=== PATIENT | male | born 1955 | race Caucasian/White ===

== ENCOUNTER → 2017-04-30 | Outpatient (CLI) | payer BC ==
--- NOTE | 2017-05-08 12:17 | P.ARTDOP ---
Arterial Doppler LOWER EXTREMITY ARTERIAL DOPPLER: DATE OF SERVICE: 04/30/2019 Reason for study: Bilateral leg pain and ulcer right lower leg. Doppler waveforms: Multiphasic bilaterally throughout. Pulse volume recording: Normal configuration. Toe plethysmography waveforms look good Pressure gradients: None. Ankle-brachial indices: Greater than 1 on the left, right side cannot be occluded. Toe pressures: 74 on the right, 88 on the left Impression: Normal study in regards to flow. Suspect some calcification making some areas noncompressible. Perfusion however appears adequate for healing..
== END | disposition home or self-care (01) ==
LOC: RADUSWWP 13:04
PROVIDERS: ATTEND Internal Medicine Infectious Disease
DX: M79.604 Pain in right leg (principal); M79.605 Pain in left leg
CPT/HCPCS: 93923

== ENCOUNTER 2018-08-22 12:35 | Inpatient (IN) | payer BC ==
[2018-08-22 14:00] LABS: Basophils # (A) 0.1 k/uL (0-0.2); Basophils % (A) 1 %; Eosinophils # (A) 0.6 k/uL (0-0.7); Eosinophils % (A) 6 %; HCT 45.6 % (39.0-53.0); Lymphocytes # (A) 1.7 k/uL (1.0-4.8); Lymphocytes % (A) 16 %; MCH 29.3 pg (25.0-35.0); MCHC 32.9 g/dL (31.0-37.0); MCV 89.3 fL (80.0-100.0); Mean Platelet Volume 7.4; Monocytes # (A) 0.8 k/uL (0-1.0); Monocytes % (A) 7 %; Neutrophils # (A) 7.7 k/uL (1.3-7.7); Neutrophils % (A) 69 %; Platelet Count 156 k/uL (150-450); RBC 5.11 m/uL (4.30-5.90); RDW 14.5 % (11.5-15.5); WBC 11.2 k/uL (3.8-10.6)
--- NOTE | 2018-08-22 14:07 | ED ---
Extremity Problem HPI - General Chief complaint: Extremity Problem,Nontraumatic Stated complaint: Leg swelling/infection Time Seen by Provider: 08/22/18 12:45 Source: patient, RN notes reviewed Mode of arrival: ambulatory Limitations: no limitations - History of Present Illness Initial comments: 63-year-old male presents emergency Department chief complaint of right leg swelling. Patient states he primarily noticed that yesterday has worsened. He states she's noticed redness that has spread to his right thigh. Patient states he hasn't like this in the past and was treated with antibiotics for 2 weeks in the hospital. Patient states she has no history of DVT. Denies chest pain or shortness of breath. Patient reports no fevers or chills. He states his leg is very achy at this time denies any trauma. He is a known diabetic. Denies open lesions or sores on his foot or leg. - Related Data Home Medications Medication Instructions Recorded Confirmed Aspirin [Children's Aspirin] 81 mg PO DAILY 04/15/17 08/22/18 Dapagliflozin Propanediol [Farxiga] 5 mg PO DAILY 04/15/17 08/22/18 Furosemide [Lasix] 20 mg PO BID 04/15/17 08/22/18 Glimepiride [Amaryl] 4 mg PO DAILY 04/15/17 08/22/18 Pravastatin Sodium [Pravachol] 20 mg PO DAILY 04/15/17 08/22/18 Quinapril HCl [Accupril] 20 mg PO DAILY 04/15/17 08/22/18 metFORMIN HCL ER [Glucophage Xr] 500 mg PO DAILY 04/15/17 08/22/18 Hydrocodone/Acetaminophen [Melvin 1 tab PO Q6H PRN 08/22/18 08/22/18 5-325] Ibuprofen [Motrin Ib] 200 mg PO Q6H PRN 08/22/18 08/22/18 Levothyroxine Sodium [Synthroid] 75 mcg PO DAILY 08/22/18 08/22/18 Allergies Allergy/AdvReac Type Severity Reaction Status Date / Time No Known Allergies Allergy Verified 08/22/18 13:31 Review of Systems ROS Statement: Those systems with pertinent positive or pertinent negative responses have been documented in the HPI. ROS Other: All systems not noted in ROS Statement are negative. Past Medical History Past Medical History: Diabetes Mellitus, Hyperlipidemia, Hypertension, Myocardial Infarction ([place]) Additional Past Medical History / Comment(s): WOUND TO RLE Last Myocardial Infarction Date:: BETWEEN 2001 -2008 History of Any Multi-Drug Resistant Organisms: MRSA Date of last positivie culture/infection: 2008 MDRO Source:: LT SHOULDER Past Surgical History: Adenoidectomy, Orthopedic Surgery, Tonsillectomy Additional Past Surgical History / Comment(s): LT SHOULDER SX. LT KNEE SX. BILAT VEIN STRIPPING Past Anesthesia/Blood Transfusion Reactions: No Reported Reaction Past Psychological History: No Psychological Hx Reported Smoking Status: Never smoker Past Alcohol Use History: None Reported Past Drug Use History: None Reported - Past Family History Mother Family Medical History: No Reported History Brother(s) Family Medical History: Cancer General Exam Limitations: no limitations General appearance: alert, in no apparent distress Head exam: Present: atraumatic, normocephalic, normal inspection Respiratory exam: Present: normal lung sounds bilaterally. Absent: respiratory distress, wheezes, rales, rhonchi, stridor Cardiovascular Exam: Present: regular rate, normal rhythm, normal heart sounds. Absent: systolic murmur, diastolic murmur, rubs, gallop, clicks Extremities exam: Present: other (Right leg there is moderate to severe swelling extending to the right thigh with erythema, pedal pulses are equal bilaterally there is some noted tinea pedis there is moderate warmth to the right leg.) Neurological exam: Present: alert, oriented X3, CN II-XII intact, reflexes normal. Absent: motor sensory deficit Skin exam: Present: warm, dry, intact, normal color. Absent: rash Course Vital Signs 08/22/18 12:42 Temperature 99.4 F Pulse Rate 83 Respiratory 18 Rate Blood Pressure 177/69 O2 Sat by Pulse 97 Oximetry Medical Decision Making - Medical Decision Making 63-year-old male presented for right leg pain. Patient has extensive cellulitis negative for acute DVT on ultrasound. Patient has multiple lymph nodes. Patient has a white count 11.2. Patient be admitted for IV antibiotics. - Lab Data Result diagrams: 08/22/18 13:30 08/22/18 13:30 Lab Results 08/22/18 08/22/18 08/22/18 Range/Units 13:30 13:30 13:30 WBC 11.2 H (3.8-10.6) k/uL RBC 5.11 (4.30-5.90) m/uL Hgb 15.0 (13.0-17.5) gm/dL Hct 45.6 (39.0-53.0) % MCV 89.3 (80.0-100.0) fL MCH 29.3 (25.0-35.0) pg MCHC 32.9 (31.0-37.0) g/dL RDW 14.5 (11.5-15.5) % Plt Count 156 (150-450) k/uL Neutrophils % 69 % Lymphocytes % 16 % Monocytes % 7 % Eosinophils % 6 % Basophils % 1 % Neutrophils # 7.7 (1.3-7.7) k/uL Lymphocytes # 1.7 (1.0-4.8) k/uL Monocytes # 0.8 (0-1.0) k/uL Eosinophils # 0.6 (0-0.7) k/uL Basophils # 0.1 (0-0.2) k/uL PT 9.5 (9.0-12.0) sec INR 0.9 (<1.2) APTT 25.0 (22.0-30.0) sec Sodium 139 (137-145) mmol/L Potassium 4.5 (3.5-5.1) mmol/L Chloride 106 (98-107) mmol/L Carbon Dioxide 23 (22-30) mmol/L Anion Gap 10 mmol/L BUN 33 H (9-20) mg/dL Creatinine 1.25 (0.66-1.25) mg/dL Est GFR (CKD-EPI)AfAm 70 (>60 ml/min/1.73 sqM) Est GFR (CKD-EPI)NonAf 61 (>60 ml/min/1.73 sqM) Glucose 188 H (74-99) mg/dL Plasma Lactic Acid Willie (0.7-2.0) mmol/L Calcium 9.5 (8.4-10.2) mg/dL Total Bilirubin 0.5 (0.2-1.3) mg/dL AST 18 (17-59) U/L ALT 25 (21-72) U/L Alkaline Phosphatase 93 (38-126) U/L Total Protein 7.3 (6.3-8.2) g/dL Albumin 4.1 (3.5-5.0) g/dL 08/22/18 Range/Units 13:30 WBC (3.8-10.6) k/uL RBC (4.30-5.90) m/uL Hgb (13.0-17.5) gm/dL Hct (39.0-53.0) % MCV (80.0-100.0) fL MCH (25.0-35.0) pg MCHC (31.0-37.0) g/dL RDW (11.5-15.5) % Plt Count (150-450) k/uL Neutrophils % % Lymphocytes % % Monocytes % % Eosinophils % % Basophils % % Neutrophils # (1.3-7.7) k/uL Lymphocytes # (1.0-4.8) k/uL Monocytes # (0-1.0) k/uL Eosinophils # (0-0.7) k/uL Basophils # (0-0.2) k/uL PT (9.0-12.0) sec INR (<1.2) APTT (22.0-30.0) sec Sodium (137-145) mmol/L Potassium (3.5-5.1) mmol/L Chloride (98-107) mmol/L Carbon Dioxide (22-30) mmol/L Anion Gap mmol/L BUN (9-20) mg/dL Creatinine (0.66-1.25) mg/dL Est GFR (CKD-EPI)AfAm (>60 ml/min/1.73 sqM) Est GFR (CKD-EPI)NonAf (>60 ml/min/1.73 sqM) Glucose (74-99) mg/dL Plasma Lactic Acid Willie 1.0 (0.7-2.0) mmol/L Calcium (8.4-10.2) mg/dL Total Bilirubin (0.2-1.3) mg/dL AST (17-59) U/L ALT (21-72) U/L Alkaline Phosphatase (38-126) U/L Total Protein (6.3-8.2) g/dL Albumin (3.5-5.0) g/dL Disposition Clinical Impression: Cellulitis of right leg, Leg edema, right Disposition: ADMITTED IP TO THIS HOSP Condition: Fair Referrals: Beltran Christine MD [Primary Care Provider] - 1-2 days
[2018-08-22 14:10] LABS: Albumin 4.1 g/dL (3.5-5.0); Calcium 9.5 mg/dL (8.4-10.2); Potassium 4.5 mmol/L (3.5-5.1); Total Bilirubin 0.5 mg/dL (0.2-1.3); Total Protein 7.3 g/dL (6.3-8.2)
[2018-08-22 14:13] LABS: INR 0.9 (<1.2); Prothrombin Time 9.5 sec (9.0-12.0)
--- NOTE | 2018-08-22 14:20 | US ---
EXAMINATION TYPE: US venous doppler duplex LE RT DATE OF EXAM: 08/22/2018 2:04 PM COMPARISON: US 2009 CLINICAL HISTORY: Pain. Right lower leg pain, swelling and redness SIDE PERFORMED: Right TECHNIQUE: The lower extremity deep venous system is examined utilizing real time linear array sonog misbah with graded compression, doppler sonography and color-flow sonography. VESSELS IMAGED: External Iliac Vein (EIV) Common Femoral Vein Deep Femoral Vein Greater Saphenous Vein * Femoral Vein Popliteal Vein Small Saphenous Vein * Proximal Calf Veins (* superficial vessels) Grayscale, color doppler, spectral doppler imaging performed of the deep veins of the right lower ext remity. There is normal flow, compressibility, vascular waveforms. Right Leg: Appears negative for DVT Right groin: multiple lymph nodes seen with largest measuring 4.6 x 1.3 x 3.2cm IMPRESSION: 1. No sonographic evidence of deep venous thrombosis within the right lower extremity. 2. Multiple superficial inguinal lymph nodes are seen on the right that are mildly enlarged. These ma y be reactive and short-term follow-up ultrasound could be performed in 3 months to ensure resolution .
[2018-08-22] MEDS ORDERED: PIPERACILLIN-TAZOBACTAM 3.375 GM in SODIUM CHLORIDE 0.9% 100 ML IVPB STA (14:38)
[2018-08-22] MEDS ORDERED: VANCOMYCIN IV PER PHARMACY 1 EACH MISC MISCELLANE PRN (14:38)
[2018-08-22] MEDS ORDERED: ACETAMINOPHEN TAB 325 MG TAB PO PRN (14:39)
[2018-08-22] MEDS ORDERED: HYDROcodone/APAP 5-325MG 1 EACH TAB PO PRN (14:39)
[2018-08-22] MEDS ORDERED: NALOXONE 0.4 MG/ML 1 ML VIAL IV PRN (14:39)
[2018-08-22] MEDS ORDERED: VANCOMYCIN 2,000 MG in SODIUM CHLORIDE 0.9% 500 ML 500 ML IVPB STA (15:04)
[2018-08-22 17:10] LABS: Glucose,Whole Blood 160 mg/dL (75-99)
[2018-08-22 18:42] VITALS: BMI 37.7
[2018-08-22 20:41] LABS: Glucose,Whole Blood 214 mg/dL (75-99)
[2018-08-22] MEDS: INSULIN ASPART (NovoLOG) 100 UNIT/ML VIAL SQ SCH (20:47)
[2018-08-22] MEDS ORDERED: ONDANSETRON 4 MG/2 ML VIAL IVP PRN (22:08)
[2018-08-22] MEDS ORDERED: MAGNESIUM HYDROXIDE 2,400 MG/10 ML CUP PO PRN (22:08)
[2018-08-22] MEDS ORDERED: ALPRAZolam 0.25 MG TAB PO PRN (22:08)
[2018-08-22] MEDS ORDERED: MELATONIN 3 MG TABLET PO PRN (22:08)
[2018-08-22] MEDS ORDERED: CALCIUM CARBONATE 500 MG CHEWABLE PO PRN (22:08)
--- NOTE | 2018-08-22 22:46 | HP ---
HISTORY AND PHYSICAL DATE OF ADMISSION: 08/22/2018 DATE OF SERVICE: 08/22/2018 PRESENTING COMPLAINT: Right leg pain and redness. HISTORY OF PRESENTING COMPLAINT: This is a very pleasant 63-year-old patient of Dr. Beltran Christine. Chronic stable medical conditions include diabetes, hyperlipidemia, hypertension, prior myocardial infarction. The patient 2 years ago had a wound in the right lower extremity that was treated. The patient yesterday noticed his right lower extremity started to have pain and redness, and overnight it became more progressive, extending to above the knee. Denied any obvious fever or chills. Because of pain and redness, he decided to present to the ER and was admitted with a diagnosis of acute cellulitis. ID was consulted. We started the patient on IV vancomycin, and it is also wrapped up. The patient has had vein stripping previously to both legs. No fever. No chills. REVIEW OF SYSTEMS: CONSTITUTIONAL: None. HEENT: None. RESPIRATORY: None. CARDIOVASCULAR: None. GASTROINTESTINAL: None. GENITOURINARY: None. MUSCULOSKELETAL: None. DERMATOLOGICAL: As above. LYMPHATICS: None. PSYCHIATRY: None. NEUROLOGICAL: None. PAST HISTORY: 1. Diabetes. 2. Hypertension. 3. Hyperlipidemia. 4. Myocardial infarction. 5. Varicose vein stripping. 6. Wound to the right lower extremity. PAST SURGICAL HISTORY: 1. Adenoidectomy. 2. Orthopedic surgery. 3. Tonsillectomy. 4. Left shoulder surgery. 5. Left knee surgery. 6. Bilateral vein stripping. SOCIAL HISTORY: Does not smoke or drink alcohol. Lives with his haja Millan. 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 FAMILY HISTORY: Unremarkable. HOME MEDICATIONS: 1. Glucophage XR 500 mg a day. 2. Accupril 20 mg a day. 3. Pravachol 20 mg a day. 4. Synthroid 75 mcg a day. 5. Motrin 200 mg q.6 p.r.n. 6. [place] 5 one tablet q.6 p.r.n. 7. Amaryl 4 mg a day. 8. Lasix 20 mg b.i.d. 9. Farxiga 5 mg a day. 10.Aspirin 81 mg a day. ALLERGIES: NONE. PHYSICAL EXAMINATION: VITAL SIGNS ON PRESENTATION: Temperature 99.4, pulse 83, respiration 18, blood pressure 177/69, repeat blood pressure 131/60, pulse ox 97% on room air. GENERAL APPEARANCE: Well built; BMI 37.7. Lying in bed, awake. EYES: Pupils equal. Conjunctivae normal. HEENT: External appearance of nose and ears normal. Oral cavity normal. NECK: JVD not raised. Mass not palpable. RESPIRATORY: Effort normal. LUNGS: Fair air entry. CARDIOVASCULAR: First and second sounds normal. Minimal edema. ABDOMEN: Distended, soft. Liver and spleen not palpable. LYMPHATIC: No lymph node palpable in neck or axillae. PSYCHIATRY: Alert and oriented x3. Mood and affect normal. NEUROLOGICAL: Pupils equal. Cranial nerves grossly intact. Power and sensation grossly intact. EXTREMITIES: Right leg in a dressing until above the knee. INVESTIGATIONS: White count 11.2, potassium 4.5, BUN 33, creatinine 1.25. ASSESSMENT: 1. Acute right lower extremity cellulitis extending to above the knee. 2. Diabetes mellitus, type 2, on oral hypoglycemic. 3. Hyperlipidemia. 4. Essential hypertension. 5. Coronary artery disease with prior myocardial infarction. 6. Obesity; body mass index of 37.7. PLAN: Patient was started on IV vancomycin, IV Zosyn. Home medications are resumed. Will give Lovenox for DVT prophylaxis. Accu-Cheks are being followed. ID was consulted. Care was discussed with the patient. Questions were answered. MMODL / IJN: [id number] /
[2018-08-22] MEDS: ceFAZolin IN SWFI 2 GM/20 ML SYRINGE IVP SCH (23:48)
[2018-08-23] MEDS ORDERED: PIPERACILLIN-TAZOBACTAM 3.375 GM in SODIUM CHLORIDE 0.9% 100 ML IVPB SCH ×2
[2018-08-23] MEDS: LEVOTHYROXINE 75 MCG TAB PO SCH (05:37)
[2018-08-23] MEDS ORDERED: VANCOMYCIN 2,000 MG in SODIUM CHLORIDE 0.9% 500 ML 500 ML IVPB SCH (08:00)
[2018-08-23 08:10] LABS: Glucose,Whole Blood 226 mg/dL (75-99)
[2018-08-23] MEDS: FUROSEMIDE 20 MG TAB PO SCH ×2 (08:21→16:57)
[2018-08-23] MEDS: PRAVASTATIN SODIUM 20 MG TAB PO SCH (08:21)
[2018-08-23] MEDS: INSULIN ASPART (NovoLOG) 100 UNIT/ML VIAL SQ SCH ×4 (08:21→21:13)
[2018-08-23] MEDS: ASPIRIN 81 MG PO SCH (08:21)
[2018-08-23] MEDS: LISINOPRIL 20 MG TAB PO SCH (08:21)
[2018-08-23] MEDS: ENOXAPARIN 40 MG/0.4 ML SYRINGE SQ SCH (08:21)
[2018-08-23] MEDS: metFORMIN 500 MG TAB PO SCH ×2 (08:22→16:57)
[2018-08-23] MEDS: Dapagliflozin Propanediol [Farxiga] PO SCH (08:22)
[2018-08-23] MEDS: GLIMEPIRIDE 4 MG TAB PO SCH (08:23)
[2018-08-23] MEDS: ceFAZolin IN SWFI 2 GM/20 ML SYRINGE IVP SCH ×2 (08:46→16:57)
--- NOTE | 2018-08-23 08:53 | CONS ---
CONSULTATION DATE OF SERVICE: 08/22/2018. REASON FOR CONSULTATION: Right lower extremity cellulitis. HISTORY OF PRESENT ILLNESS: The patient is a 63-year-old, male presenting to the ER at [facility] with chief complaints of right knee swelling and redness that apparently started about 2 days ago and subsequently progressed very quickly. The patient has been complaining of associated rigors and chills with it but did not take his temperature. The patient did have mild dull aching pain to the right leg area with intensity about 3 to 4/10, and no radiation. There is currently no skin breakdown or any drainage. With these symptoms, the patient was evaluated by the ER physician. On arrival to the ER, the patient did have a Doppler ultrasound that was negative for DVT. Did show right groin lymphadenopathy. Patient white count . The patient started on vancomycin and Zosyn and admitted to the hospital. Infectious disease was consulted for further recommendation regarding antibiotic therapy. REVIEW OF SYSTEMS: Positive points have been mentioned in HPI. Rest of the 14 systems has been negative. MEDICAL HISTORY: Diabetes mellitus, hypertension, hyperlipidemia, IA and right lower extremity cellulitis, previous history of infected wound with culture positive for MRSA. PAST SURGICAL HISTORY: Adenoidectomy with tonsillectomy, left shoulder surgery, left knee surgery, bilateral vein stripping. SOCIAL HISTORY: Denies smoking, drinking or drug use. FAMILY HISTORY: Brother with history of cancer. ALLERGIES: No known drug allergies. MEDICATION: Medications include the patient currently on vancomycin pharmacy to dose, he is on Zosyn, Tylenol, [place], Xanax, aspirin, TUMS, Lovenox, Lasix, Amaryl, NovoLog, Synthroid, Zestril, Melatonin, Glucophage, Narcan, Zofran and Pravachol. PHYSICAL EXAMINATION: Blood pressure is 120/69 with a pulse of 73, temperature 98.8. He is 94% on room air. General description is an elderly male lying in bed in no distress. No tachypnea or accessory muscles of respiration use. HEENT: Shows no pallor or scleral icterus. Oral mucosal membranes are dry. No pharyngeal erythema or thrush. Neck: Trachea central. No thyromegaly. Lungs unlabored breathing. Clear to auscultation anteriorly. No wheeze or crackles. Heart S1, S2. Regular rate and rhythm. ABDOMEN: Soft, no tenderness. No guarding or rigidity. Extremities: Right leg has been diffuse swelling and redness extending to the mid thigh area currently with no evidence of any drainage . NEUROLOGIC: The patient is awake, alert, oriented x3. Mood and affect normal. LABS: Hemoglobin 15, white count 11.2 with a BUN of 33, creatinine 1.25. DIAGNOSTIC IMPRESSION AND PLAN: Patient with acute right lower extremity cellulitis in this patient who did have diffuse swelling and redness likely streptococcal disease. The patient who did have evidence of a mild clinically doubt MRSA or gram-negative infection. PLAN: 1. Discontinue vancomycin and Zosyn. 2. We will start the patient on cefazolin 2 g q.8 hours and .. 3. Beltran the area of the redness of the right leg. 4. Hector wrap from just above to below the knee. 5. We will follow up on clinical condition and culture to further adjust medication if needed. Thank you for this consultation. We will follow this patient along with you. MMODL / IJN: [id number] /
[2018-08-23 11:55] LABS: Glucose,Whole Blood 159 mg/dL (75-99)
[2018-08-23 15:16] VITALS: RESP 18
[2018-08-23 17:49] LABS: Glucose,Whole Blood 136 mg/dL (75-99)
[2018-08-23 20:23] LABS: Glucose,Whole Blood 172 mg/dL (75-99)
--- NOTE | 2018-08-23 22:59 | PN ---
PROGRESS NOTE DATE OF SERVICE: 08/23/2018. PRESENTING COMPLAINT: Right leg cellulitis. INTERVAL HISTORY: Patient with severe right lower extremity cellulitis, slow improvement. Getting antibiotics. Pain is better controlled. No nausea, vomiting. No fever. Did tolerate some diet. REVIEW OF SYSTEMS: Done for constitutional, cardiovascular, GI, pulmonary; relevant findings as above. CURRENT MEDICATIONS: Reviewed, that include IV Ancef. PHYSICAL EXAMINATION: Temperature 97.6, pulse 74, respiratory rate 18, blood pressure 150/76, pulse ox 96 percent room air. GENERAL APPEARANCE: Lying in bed, awake. EYES: Pupils equal. Conjunctivae normal. NECK: JVD not raised. Mass not palpable. Respiratory effort normal. LUNG: Clear. CARDIOVASCULAR: 1st and 2nd heart sounds. No edema. ABDOMEN: Soft, nontender. Liver and spleen not palpable. PSYCHIATRY: Alert and oriented x3. Mood and affect normal. EXTREMITIES: Right leg in a dressing. INVESTIGATIONS: Accu-Cheks are noted. Blood cultures are negative. ASSESSMENT: 1. Acute right lower extremity cellulitis above the knee with clinical response. 2. Diabetes mellitus type 2 on oral hypoglycemic. 3. Hyperlipidemia. 4. Essential hypertension. 5. Coronary artery disease with prior myocardial infarction. 6. Obesity BMI 37.7. PLAN: Care was discussed with the patient. Continue current antibiotics. Discussed Dr. Mtz. Will follow. MMODL / IJN: [id number] /
--- NOTE | 2018-08-23 23:32 | PN ---
PROGRESS NOTE DATE OF SERVICE: 08/23/2018. REASON FOR FOLLOWUP: Right lower extremity cellulitis and athlete's foot. INTERVAL HISTORY: The patient is currently afebrile. He is breathing comfortably. Denies having any chest pain, shortness of breath. No cough. No abdominal pain or any diarrhea. PHYSICAL EXAMINATION: On examination, blood pressure 151/76, pulse of 74, temperature is 97.6. He is 96% on room air. General description is an elderly male lying in bed in no distress. Respiratory system: Unlabored breathing. Clear to auscultation anteriorly. Heart S1, S2. Regular rate and rhythm. Abdomen soft. No tenderness. Right leg swelling and redness slightly decreased. No drainage. LABS: No new labs have been obtained today. Blood cultures have been negative so far. DIAGNOSTIC IMPRESSION AND PLAN: Patient with right lower extremity cellulitis and Athlete's foot. Patient at this time to continue with cefazolin 2 g q.8h along with Nystatin cream in between the toes. Continue with Hector wrap. Reevaluate the leg tomorrow. Continue supportive care. Plan of care discussed with the admitting physician. MMODL / IJN: [id number] /
[2018-08-24] MEDS: ceFAZolin IN SWFI 2 GM/20 ML SYRINGE IVP SCH ×4 (00:37→23:21)
[2018-08-24] MEDS: LEVOTHYROXINE 75 MCG TAB PO SCH (05:45)
[2018-08-24 07:19] LABS: Glucose,Whole Blood 161 mg/dL (75-99)
[2018-08-24] MEDS: ENOXAPARIN 40 MG/0.4 ML SYRINGE SQ SCH (07:35)
[2018-08-24] MEDS: metFORMIN 500 MG TAB PO SCH ×2 (07:36→16:28)
[2018-08-24] MEDS: LISINOPRIL 20 MG TAB PO SCH (07:36)
[2018-08-24] MEDS: FUROSEMIDE 20 MG TAB PO SCH ×2 (07:36→16:28)
[2018-08-24] MEDS: ASPIRIN 81 MG PO SCH (07:36)
[2018-08-24] MEDS: PRAVASTATIN SODIUM 20 MG TAB PO SCH (07:36)
[2018-08-24] MEDS: NYSTATIN 100,000UNIT/GM CREAM 30 GM TUBE TOPICAL SCH ×2 (07:37→20:42)
[2018-08-24] MEDS: INSULIN ASPART (NovoLOG) 100 UNIT/ML VIAL SQ SCH ×4 (07:37→20:47)
[2018-08-24] MEDS: GLIMEPIRIDE 4 MG TAB PO SCH (07:37)
[2018-08-24] MEDS: Dapagliflozin Propanediol [Farxiga] PO SCH (07:42)
[2018-08-24 11:59] LABS: Glucose,Whole Blood 154 mg/dL (75-99)
[2018-08-24 17:04] LABS: Glucose,Whole Blood 107 mg/dL (75-99)
[2018-08-24 20:44] LABS: Glucose,Whole Blood 147 mg/dL (75-99)
--- NOTE | 2018-08-24 21:03 | PN ---
PROGRESS NOTE DATE OF SERVICE: 08/24/2018 PRESENT COMPLAINT: Right leg cellulitis. INTERVAL HISTORY: The patient presented with severe right lower extremity cellulitis which is improving. Local dressing is to continue. No fever or chills. Pain is much better controlled. No fever. REVIEW OF SYSTEMS: Done for constitutional, cardiovascular, GI, pulmonary; relevant findings as above. CURRENT MEDICATIONS: Reviewed that include IV Ancef. EXAMINATION: VITAL SIGNS: Afebrile. Pulse 65, respiratory 18, blood pressure 129/67, pulse ox 95% on room air. GENERAL APPEARANCE: Sitting up, comfortable. EYES: Pupils equal. Conjunctivae normal. HEENT external appearance of nose and ears normal. Oral cavity normal. NECK: JVD not raised. Mass not palpable. RESPIRATORY: Effort normal. LUNGS are clear. CARDIOVASCULAR: 1st and 2nd sounds normal. No edema. ABDOMEN: Soft and nontender. Liver and spleen is not palpable. PSYCHIATRY: Alert and oriented times three. Mood and affect normal. Right lower extremity in a dressing. INVESTIGATIONS: Accu-Cheks are noted. ASSESSMENT: 1. Acute right lower extremity cellulitis continues to improve. The patient looked at leg before dressing change this morning. 2. Diabetes mellitus type 2 on oral hypoglycemics. 3. Hyperlipidemia. 4. Essential hypertension. 5. Coronary artery disease with prior myocardial infarction. 6. Obesity BMI 37.7. PLAN: Continue current medication and treatment plan. Care was discussed with the patient. Follow. ROSANNA / BRIDGETTE: [id number] /
--- NOTE | 2018-08-25 01:00 | PN ---
PROGRESS NOTE DATE OF SERVICE: 08/24/2018. REASON FOR FOLLOWUP: Right lower extremity cellulitis. INTERVAL HISTORY: The patient is currently afebrile. He has been breathing comfortably. Denies having any chest pain. No abdominal pain. No pain in the right leg area. PHYSICAL EXAMINATION: Blood pressure 141/71 with a pulse of 86, temperature 98.7. He is 97% on room air. General description is an elderly male lying in bed in no distress. Respiratory system: Unlabored breathing. Clear to auscultation anteriorly. Heart S1, S2. Regular rate and rhythm. Abdomen is sift, no tenderness. Right leg swelling has decreased. No drainage. LABS: No new labs have been obtained today. DIAGNOSTIC IMPRESSION AND PLAN: Patient with acute right lower extremity cellulitis with diffuse swelling and flexible, Patient seems to have her clinical determination, Cefepime to continue or Nystatin cream in between the toes. The patient continued to do some therapy with strict between the 2 for the patient and to 50 with the oral Keflex 500 mg 3 times a day for about a week with close outpatient followup. MMODL / IJN: [id number] /
[2018-08-25] MEDS: LEVOTHYROXINE 75 MCG TAB PO SCH (05:46)
[2018-08-25 06:04] VITALS: BP 142/76; PULSE 64; TEMP 97.4
[2018-08-25 07:28] LABS: Glucose,Whole Blood 158 mg/dL (75-99)
[2018-08-25] MEDS: INSULIN ASPART (NovoLOG) 100 UNIT/ML VIAL SQ SCH ×2 (07:38→13:24)
[2018-08-25] MEDS: GLIMEPIRIDE 4 MG TAB PO SCH (07:39)
[2018-08-25] MEDS: ENOXAPARIN 40 MG/0.4 ML SYRINGE SQ SCH (07:39)
[2018-08-25] MEDS: PRAVASTATIN SODIUM 20 MG TAB PO SCH (07:39)
[2018-08-25] MEDS: FUROSEMIDE 20 MG TAB PO SCH (07:39)
[2018-08-25] MEDS: ASPIRIN 81 MG PO SCH (07:39)
[2018-08-25] MEDS: LISINOPRIL 20 MG TAB PO SCH (07:39)
[2018-08-25] MEDS: metFORMIN 500 MG TAB PO SCH (07:39)
[2018-08-25] MEDS: ceFAZolin IN SWFI 2 GM/20 ML SYRINGE IVP SCH (07:40)
[2018-08-25] MEDS: Dapagliflozin Propanediol [Farxiga] PO SCH (07:40)
[2018-08-25] MEDS: NYSTATIN 100,000UNIT/GM CREAM 30 GM TUBE TOPICAL SCH (07:40)
[2018-08-25 09:32] LABS: Basophils # (A) 0.1 k/uL (0-0.2); Basophils % (A) 1 %; Eosinophils # (A) 0.4 k/uL (0-0.7); Eosinophils % (A) 8 %; HCT 46.6 % (39.0-53.0); HGB 14.8 gm/dL (13.0-17.5); Lymphocytes # (A) 1.6 k/uL (1.0-4.8); Lymphocytes % (A) 30 %; MCHC 31.8 g/dL (31.0-37.0); MCV 90.9 fL (80.0-100.0); Mean Platelet Volume 7.3; Monocytes # (A) 0.4 k/uL (0-1.0); Monocytes % (A) 7 %; Neutrophils # (A) 2.9 k/uL (1.3-7.7); Neutrophils % (A) 52 %; Platelet Count 168 k/uL (150-450); RBC 5.13 m/uL (4.30-5.90); RDW 14.2 % (11.5-15.5); WBC 5.5 k/uL (3.8-10.6)
[2018-08-25 12:13] LABS: Glucose,Whole Blood 132 mg/dL (75-99)
--- NOTE | 2018-08-25 17:10 | PN ---
PROGRESS NOTE DATE OF SERVICE: 08/25/2018. REASON FOR FOLLOWUP: Right lower extremity cellulitis. INTERVAL HISTORY: The patient was seen on rounds early this afternoon. The patient has been afebrile. He is breathing comfortably. Denies having any chest pain or cough. No abdominal pain or any worsening pain in the right leg area. Overall swelling and redness have improved. PHYSICAL EXAMINATION: Blood pressure 142/76, pulse of 64, temperature 97.4. He is 94% on room air. General description is an elderly male up in the chair in no distress. RESPIRATORY SYSTEM: Unlabored breathing. Clear to auscultation anteriorly. HEART: S1, S2. Regular rate and rhythm. ABDOMEN: Soft. No tenderness. Right leg swelling and redness have improved. No drainage. LABS: White count 5.5. DIAGNOSTIC IMPRESSION AND PLAN: Patient with acute right lower extremity cellulitis with diffuse swelling and redness, likely streptococcal disease. The patient will finish therapy with oral Keflex 500 mg q.6 hours for 10 days -- prescription was sent to the pharmacy -- with close outpatient followup. MMODL / IJN: [id number] /
--- NOTE | 2018-08-25 18:22 | DS ---
DISCHARGE SUMMARY DATE OF ADMISSION: 08/22/2018 DATE OF DISCHARGE: 08/25/2018. FINAL DIAGNOSES: 1. Acute right lower extremity cellulitis, severe. 2. Diabetes mellitus type 2 on oral hypoglycemics. 3. Hyperlipidemia. 4. Essential hypertension. 5. Coronary artery disease with prior history of myocardial infarction. 6. Obesity BMI 39.7. HOSPITAL COURSE: This patient presented with severe right lower extremity cellulitis, responded well to antibiotics and topical care including dressing and Hector wraps in the form of IV Ancef. Today the leg is looking much improved. The patient told to wear his Hector wrap. He may have venous insufficiency. CONSULTATION: Dr. Mtz from Infectious Disease. PHYSICAL EXAMINATION: VITAL SIGNS: Temperature 97.4, pulse 84, respiratory 18, blood pressure 142/76, pulse ox 94 percent on room air. LUNGS: Fair air entry. EXTREMITIES: Right lower extremity redness, tenderness, much resolved. INVESTIGATIONS: White count 5.3, hemoglobin 14.8. Blood cultures are negative. DISCHARGE MEDICATIONS: 1. Aspirin 81 mg a day. 2. Farxiga 5 mg p.o. daily. 3. Lasix 20 mg b.i.d. 4. Amaryl 4 mg p.o. daily. 5. Pravachol 20 mg p.o. daily. 6. Accupril 20 mg p.o. daily. 7. Glucophage XR 500 mg p.o. daily. 8. [place] 5 one tablet q.6h p.r.n. 9. Synthroid 75 mcg daily. 10.Keflex 500 mg q.6h 40 capsules. 11.Nystatin topical b.i.d. FOLLOWUP: With Dr. Beltran Christine on September 01, 2018; Dr. Mtz on September 02, 2018, hector wraps to send with the patient. Copy to Dr. Beltran Christine. MMODL / IJN: [id number] /
== END 2018-08-25 14:32 | disposition home or self-care (01) | DRG 603 ==
LOC: EC 12:35 → 4MS4W 14:42
PROVIDERS: ADMIT Hospitalist; ATTEND Hospitalist
DX: L03.115 Cellulitis of right lower limb (principal); E11.9 Type 2 diabetes mellitus without complications; I10 Essential (primary) hypertension; E78.5 Hyperlipidemia, unspecified; E66.9 Obesity, unspecified; B35.3 Tinea pedis; B95.5 Unspecified streptococcus as the cause of diseases classified elsewhere; I25.10 Atherosclerotic heart disease of native coronary artery without angina pectoris; I25.2 Old myocardial infarction; Z68.39 Body mass index [BMI] 39.0-39.9, adult; Z79.84 Long term (current) use of oral hypoglycemic drugs; Z79.82 Long term (current) use of aspirin; Z79.899 Other long term (current) drug therapy; Z79.890 Hormone replacement therapy; Z86.14 Personal history of Methicillin resistant Staphylococcus aureus infection; Z80.9 Family history of malignant neoplasm, unspecified
CPT/HCPCS: 36415; 80053; 83605; 85025; 85610; 85730; 87040; 93005; 96365; 99284

== ENCOUNTER → 2019-11-23 | Outpatient (CLI) | payer BC ==
--- NOTE | 2019-11-23 16:23 | US ---
EXAMINATION TYPE: US venous doppler duplex LE RT DATE OF EXAM: 11/23/2019 4:06 PM COMPARISON: Prior right lower extremity venous ultrasound August 2018 CLINICAL HISTORY: I80.9 Phlebitis and thrombophlebitis of unspecified. Patient fell. Not on blood thi nners. SIDE PERFORMED: Right TECHNIQUE: The lower extremity deep venous system is examined utilizing real time linear array sonog misbah with graded compression, doppler sonography and color-flow sonography. VESSELS IMAGED: External Iliac Vein (EIV) Common Femoral Vein Deep Femoral Vein Greater Saphenous Vein * Femoral Vein Popliteal Vein Small Saphenous Vein * Proximal Calf Veins (* superficial vessels) Right Leg: Negative for DVT Grayscale, color doppler, spectral doppler imaging performed of the deep veins of the right lower ext remity. There is normal flow, compressibility, vascular waveforms. IMPRESSION: No ultrasound evidence for acute DVT in the right lower extremity. No significant change from prior study.
== END | disposition home or self-care (01) ==
LOC: RADUSMAIN 15:24
PROVIDERS: ATTEND Orthopaedic Surgery
DX: M17.11 Unilateral primary osteoarthritis, right knee (principal); M79.604 Pain in right leg; I80.9 Phlebitis and thrombophlebitis of unspecified site; E11.9 Type 2 diabetes mellitus without complications; M17.12 Unilateral primary osteoarthritis, left knee; M25.562 Pain in left knee; E66.9 Obesity, unspecified; Z68.35 Body mass index [BMI] 35.0-35.9, adult

== ENCOUNTER 2020-05-02 13:10 | Day surgery (SDC) | payer MEDICARE, OTHER ==
[2020-04-27 16:08] VITALS: BMI 37.5
[~2020-05-02 13:10] MED LIST: ACETAMINOPHEN TAB 500 MG TAB PO ONE; DEXAMETHASONE SOD PHOSPHATE 10 MG/ML 1 ML VIAL IV ONE; HYDROmorphone 0.5 MG/0.5 ML SYRINGE IVP PRN; MELOXICAM 7.5 MG TAB PO ONE; MIDAZOLAM 2 MG/2 ML VIAL IV PRN; ONDANSETRON 4 MG/2 ML VIAL IVP ONE; TRANEXAMIC ACID 1,000 MG in SODIUM CHLORIDE 0.9% 100 ML IVPB ONE; VANCOMYCIN 1,750 MG in SODIUM CHLORIDE 0.9% 500 ML 500 ML IVPB ONE
[2020-05-02 13:55] LABS: Glucose,Whole Blood 182 mg/dL (75-99)
[2020-05-02] MEDS ORDERED: ACETAMINOPHEN TAB 500 MG TAB ONE (13:59)
[2020-05-02] MEDS: LACTATED RINGERS 1,000 ML IV SCH (14:03)
[2020-05-02] MEDS ORDERED: LIDOCAINE 1% (10MG/ML) FOR IV START INTRADERMA ONE (14:04)
[2020-05-02] MEDS ORDERED: MIDAZOLAM 2 MG/2 ML VIAL IV ONE (14:13)
[2020-05-02] MEDS ORDERED: fentaNYL (PF) 50 MCG/ML 2 ML AMP IV ONE (14:13)
[2020-05-02] MEDS ORDERED: PROPOFOL 10 MG/ML 20 ML VIAL IV ONE (15:06)
[2020-05-02] MEDS ORDERED: SODIUM CHLORIDE 0.9% 100 ML BAG ONE (15:06)
[2020-05-02] MEDS ORDERED: TRANEXAMIC ACID 1,000 MG/10 ML VIAL ONE (15:06)
[2020-05-02] MEDS ORDERED: MIDAZOLAM 2 MG/2 ML VIAL ONE (15:06)
[2020-05-02] MEDS ORDERED: ROPIVACAINE 0.2%-NS ON-Q PUMP 1,090 MG, EMPTY PAIN BALL 1 EACH MISCELLANE PRN (15:36)
--- NOTE | 2020-05-02 15:36 | P.ANPRN ---
Procedure Note - Anesthesia - Nerve Block Performed Left Adductor Canal Infusion Time Out Performed: Yes (1412) Date of Procedure: 05/02/20 Procedure Start Time: 14:13 Procedure Stop Time: 14:20 Location of Patient: PreOp Indication: Acute Post-Operative Pain, Requested by Surgeon Specifically requested for management of pain by DrGianna: Navin Templeton Sedation Type: Sedate with meaningful contact maintained Preparation: Sterile Prep Position: Supine Catheter Depth at Skin (cm): 9 Catheter: Indwelling Needle Types: Pajunk Needle Gauge: 21 Ultrasound used to visualize needle placement: Yes Ultrasound used to observe medication spread: Yes Injectate: 0.5% Ropivacaine (see comment for volume) Blood Aspirated: No Pain Paresthesia on Injection Noted: No Resistance on Injection: Normal Image Stored and Saved: Yes Events: Uneventful and Well Tolerated
[2020-05-02] MEDS: ROPIVACAINE 246.25 MG, EPINEPHrine 0.5 MG, KETOROLAC 30 MG, cloNIDine HCL/PF 80 MCG, WA... MISCELLANE ONE ×10 (15:59→16:30)
[2020-05-02] MEDS ORDERED: ceFAZolin 3,000 MG in SODIUM CHLORIDE 0.9% IRRIGATIO 3,000 ML IRRIGATION ONE (16:02)
[2020-05-02] MEDS ORDERED: LACTATED RINGERS 1,000 ML IV ONE (17:08)
--- NOTE | 2020-05-02 17:27 | P.OP ---
Date of Procedure: 05/02/20 Procedure(s) Performed: PREOPERATIVE DIAGNOSIS: Left knee severe osteoarthritis with genu varum POSTOPERATIVE DIAGNOSIS: Left knee severe osteoarthritis with genu varum OPERATION: Left knee cemented total replacement arthroplasty. ANESTHESIA: Spinal ESTIMATED BLOOD LOSS: 100 ml. AIRCRAFT ENGINE MECHANIC: Melly Duggan PA-C (assistance with: patient positioning, retraction, exposure, hemostasis, leg positioning, implantation, irrigation, closure, dressing) COMPLICATIONS: None apparent. COMPONENTS IMPLANTED: Persona system from [employer] INDICATIONS: Mr. Springer is a 64-year-old male with a history of left knee osteoarthritis. He also has severe contracture, with a flexion contracture of approximately 12, and severe flexion stiffnesswith total flexion to approximately 100and obesity. Conservative treatment has been tried and has been unsuccessful in controlling symptoms adequately. The operation of knee replacement has been discussed at length in the office, as well as potential risks and complications. These are inclusive of, but not limited to: bleeding, infection, scarring, discomfort, blood vessel and nerve damage, need for further surgery, failure to relieve symptoms, persistence, recurrence, or worsening of problems, loosening, dislocation, wear, blood clot, pulmonary embolism, , gait dysfunction, stiffness, and other risks as discussed in the office. The patient elects to proceed and the consent form has been signed. PROCEDURE: The patient was taken to the operating room and positioned on the operating room table in the supine position. Anesthesia was initiated. Care was taken to make sure that all pressure points were adequately padded. The operative lower extremity was prepped and draped in the usual aseptic fashion using ChloraPrep. Ioban drape was used for the case and the patient received intravenous antibiotics within one hour of the incision. A pneumotourniquet and leg holm were used for the case. The limb was exsanguinated with an Esmarch bandage and the tourniquet was inflated to 350 mmHg. Time-out was called confirming the patient's identity, side, procedure and administration of antibiotics and tranexamic acid, 1 g IV. Because of his history of MRSA infection, he was given preoperative vancomycin 1 g. The incision was then created midline directly over the knee, carried down through skin and into the subcutaneous tissues and down to fascia. Full thickness subcutaneous medial flap was developed. Medial parapatellar arthrotomy was performed and the interior of the knee was inspected. There was end-stage osteoarthritis of the knee with a mild to moderate genu varum type deformity. severe scar tissue and synovitis was noted within the suprapatellar pouch, and wear noted, this excessive scar/adhesion tissue was removed sharply using a knife. Meticulous hemostasis was maintained with electrocautery. The fat pad was excised and proximal medial release on the tibia was completed using meticulous dissection and a curved osteotome. The anterior cruciate ligament was taken down. Note was made of significant attrition of the anterior and significant degenerative appearance of the posterior cruciate ligaments. The exposure was excellent. The knee was flexed 90 degrees and the patella was everted. A spot was chosen on the femur approximately 1 cm anterior to the posterior cruciate ligament insertion and an intramedullary hole was created within the femur. The intramedullary guide was then set to 5 degrees of valgus. The distal cutting block was attached and pinned into position. An appropriate amount of distal femoral resection was set. The oscillating saw was then used to make the distal femoral cut. This cut was confirmed to be flat with the flat end of an osteotome. The retractors were placed around the tibia and the tibial surface was addressed. The angle and depth of resection was adjusted using an extramedullary cutting guide. The guide had a built-in 3 degree posterior slope cut. Once the cutting guide was adjusted appropriately and in line with the axis of the tibia and confirmed to be in good position in relation to the second metatarsal and transmalleolar axis, the tibial cut was then created with protection of the posterior neurovascular structures and the collateral ligaments. The tibial cut surface was removed and sized. Femoral sizing was then accomplished using anterior referencing. Care was taken to analyze the posterior condyles for signs of deficiency or severe wear, and adjustments to the guide were made, as appropriate. 3 degree external rotation pins were placed. The cutting jig for the femur was applied to these pins. The planned cuts were further analyzed prior to performing them with the oscillating saw. No femoral notching was produced. Bone fragments were removed and the cut surfaces were finished, as necessary, with a reciprocating saw. Spacer block technique was then used to confirm that the flexion and extension gaps were equal. Soft tissue releases and adjustment of the tibial and/or femoral cuts were made, as necessary, until the gaps were equal. This included release of the posterior cruciate ligament, which was tight in this patient. The femur was then further finished for a posterior cruciate ligament substituting component. Patellar resurfacing was performed using a reamer. The size of the required patellar component was estimated and the patellar surface was then reamed down to a residual thickness which would recreate the lummi thickness with the component. The exact placement of the patellar component was adjusted for position based on preoperative x-rays and intraoperative findings. Prior to placing trial components, anesthetic solution consisting of ropivicaine with epinephrine, ketorolac, and clonidine was injected carefully and methodically in a grid pattern using aspiration technique into the soft tissue around the knee circumferentially, starting with the deeper tissues first and progressing to fascia, and then finally the skin/subcutaneous tissue. Particular care was taken when injecting the posterior capsule. The trial components were inserted. The tibial tray was allowed to self center and the patella was noted to track very well. The position of the tibial component was marked and the tibia was then finished for a stemmed tibial component. Antibiotic-containing cement was mixed on the back table and applied to the final components. Trial components were removed and the cut surfaces of the bone were pulse lavaged thoroughly and dried. Cement was then applied to the tibial surface and pressurized into the surface using finger pressurization technique. The tibial component was then applied and excess cement was removed after it was impacted securely and noted to be flush with the cut surface. In similar fashion, the cement was applied to the cut femoral surface, pressurized in using finger pressurization and the component was impacted into place. Excess cement was removed. The polyethylene spacer was then implanted and locked into position. The patellar component was then applied in similar technique and a patellar clamp was used to hold the patella in place as the cement hardened. Once the cement had fully hardened, the knee was reinspected. Any other cement extrusion was removed and final kinematic testing showed range of motion from 0 to 130 degrees with excellent stability, both medially and laterally and appropriate alignment of the leg. Patellar tracking was excellent. The knee was then thoroughly pulse lavaged with normal saline. The tourniquet was deflated and hemostasis was obtained with electrocautery and IV tranexamic acid, 1 g given prior to inflation of the tourniquet and another gram given at the time of closure. Closure was with #2 Ethibond in the fascia and supplemented with #2 Quill, 2-0 Vicryl suture was used for the subcutaneous tissues and 3-0 Quill for the skin. Dermabond/Steri-Strips were then applied. A lightly compressive dressing was applied using Webril and an Hector wrap. The patient was then transferred to stretcher and taken to the recovery room in stable condition. Sponge and needle counts were correct.
[2020-05-02] MEDS ORDERED: MAGNESIUM HYDROXIDE 2,400 MG/10 ML CUP PO PRN (17:37)
[2020-05-02] MEDS ORDERED: ONDANSETRON 4 MG/2 ML VIAL IVP PRN (17:37)
[2020-05-02] MEDS ORDERED: bisacodyL 10 MG SUPP RECTAL PRN (17:37)
[2020-05-02] MEDS ORDERED: HYDROcodone/APAP 5-325MG 1 EACH TAB PO PRN (17:37)
[2020-05-02] MEDS ORDERED: HYDROmorphone 0.5 MG/0.5 ML SYRINGE IVP PRN ×3 (17:37)
[2020-05-02] MEDS ORDERED: NA PHOS,M-B/NA PHOS,DI-BA 133 ML ENEMA RECTAL PRN (17:37)
[2020-05-02] MEDS ORDERED: hydrOXYzine pamoate 25 MG CAP PO PRN (17:37)
[2020-05-02] MEDS ORDERED: NALOXONE 0.4 MG/ML 1 ML VIAL IV PRN (17:37)
[2020-05-02] MEDS ORDERED: HYDROcodone/APAP 7.5-325MG 1 EACH TAB PO PRN (17:37)
--- NOTE | 2020-05-02 18:13 | XR ---
Result: History: Postoperative knee. Comparison: None available. Technique: 2 views of the left knee. Findings: There are postsurgical changes of total knee arthroplasty with patellar resurfacing without evidence of immediate hardware complication. No acute fracture or dislocation of is seen. There are postsurgi keshia changes about the knee soft tissues with joint effusion. Impression: Expected post surgical changes of left total knee arthroplasty.
[2020-05-02 18:23] LABS: Glucose,Whole Blood 219 mg/dL (75-99)
[2020-05-02] MEDS ORDERED: INSULIN ASPART (NovoLOG) 100 UNIT/ML VIAL SQ ONE (18:26)
[2020-05-02 20:43] LABS: Glucose,Whole Blood 217 mg/dL (75-99)
[2020-05-02] MEDS ORDERED: SENNOSIDES-DOCUSATE SODIUM 1 EACH TAB PO SCH (21:00)
[2020-05-02] MEDS: ASPIRIN 81 MG PO SCH (21:35)
[2020-05-03 03:46] VITALS: RESP 18
[2020-05-03] MEDS: LACTATED RINGERS 1,000 ML IV SCH (05:54)
[2020-05-03 06:52] LABS: Basophils % (A) 0 %; Eosinophils % (A) 0 %; HCT 43.4 % (39.0-53.0); HGB 14.4 gm/dL (13.0-17.5); Lymphocytes # (A) 0.9 k/uL (1.0-4.8); Lymphocytes % (A) 8 %; MCH 30.5 pg (25.0-35.0); MCHC 33.1 g/dL (31.0-37.0); Mean Platelet Volume 7.1; Monocytes # (A) 0.7 k/uL (0-1.0); Monocytes % (A) 7 %; Neutrophils # (A) 8.9 k/uL (1.3-7.7); Neutrophils % (A) 83 %; Platelet Count 148 k/uL (150-450); RBC 4.71 m/uL (4.30-5.90); RDW 14.1 % (11.5-15.5); WBC 10.7 k/uL (3.8-10.6)
[2020-05-03 07:06] LABS: Glucose,Whole Blood 158 mg/dL (75-99)
[2020-05-03 07:40] VITALS: BP 146/63; PULSE 71; TEMP 99
[2020-05-03] MEDS: ASPIRIN 81 MG PO SCH (08:27)
--- NOTE | 2020-05-03 08:28 | P.PN ---
Progress Note - Text The patient is status post[eft ] adductor canal catheter placement. The catheter was placed for postoperative pain control, status post total [left ] arthroplasty. Ropivacaine 0.2% is infusing at[8] mLs per hour. The patient has no complaints of[ eft] lower extremity numbness or weakness. Patient's VAS score is[ 2]-10. Assessment: Patient's adductor canal catheter is in place and working appropriately. Plan: continue infusion and adjust it as needed.
[2020-05-03] MEDS ORDERED: MELOXICAM 7.5 MG TAB PO SCH (09:00)
--- NOTE | 2020-05-03 10:46 | P.DS ---
Providers Date of admission: 05/02/2020 Expected date of discharge: 05/03/20 Attending physician: Navin Templeton Consults: 05/02/20 17:37 Consult Physician Routine Consulting Provider: Hai Vinson Consult Reason/Comments: Medical management Do you want consulting provider notified?: Yes Primary care physician: Philip Alonso - Discharge Diagnosis(es) (1) Primary osteoarthritis of left knee Current Visit: Yes Status: Acute (2) Status post total left knee replacement Current Visit: Yes Status: Acute Hospital Course: This is a 64-year-old male who was last seen with complaint of continued left knee pain. The patient has a known history of degenerative arthritis of the left knee and presents to discuss surgical options. After discussion and consideration the patient elects to proceed with total left knee arthroplasty. The patient is seen preoperatively by his primary care physician and cleared for surgery. The patient is admitted to [facility] for total left knee arthroplasty. The procedures performed without complication or sequelae. He is doing well postoperatively. Vital signs are stable at discharge. Labs are stable at discharge. the patient is ambulating well with walker with minimal assistance. The patient is discharged to home on postop day #1 pending medical clearance. Please see orders and refer to the med rec for accurate list of medications. Patient Condition at Discharge: Good Plan - Discharge Summary Discharge Rx Participant: No New Discharge Prescriptions: New Aspirin [Adult Low Dose Aspirin EC] 81 mg PO BID #1 tablet. Meloxicam [Mobic] 1 - 2 tab PO DAILY PRN #30 tab PRN Reason: Pain HYDROcodone/APAP 7.5-325MG [[place] 7.5-325] 1 - 2 tab PO Q6HR PRN #32 tab PRN Reason: Pain Sennosides-Docusate Sodium [Senokot-S] 1 tab PO BID #60 tablet hydrOXYzine pamoate [Vistaril] 25 mg PO Q4-6H #30 capsule No Action Quinapril HCl [Accupril] 20 mg PO QAM Pravastatin Sodium [Pravachol] 20 mg PO QAM Furosemide [Lasix] 20 mg PO QAM Dapagliflozin Propanediol [Farxiga] 10 mg PO QAM Levothyroxine Sodium [Synthroid] 75 mcg PO QAM Cholecalciferol [Vitamin D3 (25 Mcg = 1000 Iu)] 1,000 unit PO DAILY metFORMIN HCL [Glucophage Xr] 2,000 mg PO QAM Ibuprofen 400 mg PO Q8H PRN PRN Reason: Pain Aspirin [Adult Low Dose Aspirin EC] 81 mg PO DAILY Discharge Medication List Dapagliflozin Propanediol [Farxiga] 10 mg PO QAM 04/15/17 [History] Furosemide [Lasix] 20 mg PO QAM 04/15/17 [History] Pravastatin Sodium [Pravachol] 20 mg PO QAM 04/15/17 [History] Quinapril HCl [Accupril] 20 mg PO QAM 04/15/17 [History] Levothyroxine Sodium [Synthroid] 75 mcg PO QAM 08/22/18 [History] Aspirin [Adult Low Dose Aspirin EC] 81 mg PO DAILY 04/27/20 [History] Cholecalciferol [Vitamin D3 (25 Mcg = 1000 Iu)] 1,000 unit PO DAILY 04/27/20 [History] Ibuprofen 400 mg PO Q8H PRN 04/27/20 [History] metFORMIN HCL [Glucophage Xr] 2,000 mg PO QAM 04/27/20 [History] Aspirin [Adult Low Dose Aspirin EC] 81 mg PO BID #1 tablet.dr 05/02/20 [Rx] HYDROcodone/APAP 7.5-325MG [[place] 7.5-325] 1 - 2 tab PO Q6HR PRN #32 tab 05/02/20 [Rx] Meloxicam [Mobic] 1 - 2 tab PO DAILY PRN #30 tab 05/02/20 [Rx] Sennosides-Docusate Sodium [Senokot-S] 1 tab PO BID #60 tablet 05/02/20 [Rx] hydrOXYzine pamoate [Vistaril] 25 mg PO Q4-6H #30 capsule 05/02/20 [Rx] Follow up Appointment(s)/Referral(s): Melly Duggan PAC [PHYSICIAN AUDIT CONSULTANT] - 05/18/20 4:00 pm Philip Alonso MD [Primary Care Provider] - 05/12/20 4:15 pm Patient Instructions/Handouts: Knee Replacement (DC) Activity/Diet/Wound Care/Special Instructions: May bear wt as tolerated w walker. Keep optifoam dressing intact 7-10 days. May shower after 48h post op. Begin OP PT this week. Discharge Disposition: HOME SELF-CARE
== END 2020-05-03 12:45 | disposition home or self-care (01) ==
LOC: OR 13:10 → 4SSUR 19:01 → OR 05-03 12:45
PROVIDERS: ATTEND Orthopaedic Surgery
DX: M17.0 Bilateral primary osteoarthritis of knee (principal); M21.162 Varus deformity, not elsewhere classified, left knee; I25.2 Old myocardial infarction; I10 Essential (primary) hypertension; E78.5 Hyperlipidemia, unspecified; M06.9 Rheumatoid arthritis, unspecified; E11.9 Type 2 diabetes mellitus without complications; E66.01 Morbid (severe) obesity due to excess calories; E07.9 Disorder of thyroid, unspecified; Z79.82 Long term (current) use of aspirin; Z79.84 Long term (current) use of oral hypoglycemic drugs; Z79.899 Other long term (current) drug therapy; Z83.3 Family history of diabetes mellitus; Z68.35 Body mass index [BMI] 35.0-35.9, adult
CPT/HCPCS: 97110; 97161; 64448; 76942; 85025; 88300; 73560; 27447; C1713 ×2; C1776; J2250; J0171; J3370; J1100; J2405; J0690; J3010; J1885; J2795 ×2; J2704; J0735; J1170

== ENCOUNTER 2021-03-09 18:02 | Inpatient (IN) | payer MEDICARE, OTHER ==
[2021-03-09 20:39] LABS: Glucose,Whole Blood 172 mg/dL (75-99)
[2021-03-09] MEDS ORDERED: FLUTICASONE 50MCG/SPRAY NASAL 16GM EA NOSTRIL PRN (22:04)
[2021-03-09] MEDS: HEPARIN SODIUM,PORCINE/PF 5,000 UNIT/0.5 ML SYRINGE SQ SCH (23:18)
[2021-03-10] MEDS: ACETAMINOPHEN TAB 325 MG TAB PO PRN (02:02)
[2021-03-10] MEDS: LEVOTHYROXINE 75 MCG TAB PO SCH (05:28)
[2021-03-10 07:09] LABS: Glucose,Whole Blood 152 mg/dL (75-99)
[2021-03-10] MEDS: ATORVASTATIN 80 MG TAB PO SCH (07:59)
[2021-03-10] MEDS: INSULIN ASPART (NovoLOG) 100 UNIT/ML VIAL SQ SCH ×4 (07:59→21:18)
[2021-03-10] MEDS: FAMOTIDINE 20 MG/2 ML VIAL IV SCH ×2 (07:59→21:19)
[2021-03-10] MEDS: ASPIRIN 81 MG PO SCH (07:59)
[2021-03-10] MEDS ORDERED: AMPICILLIN-SULBACTAM 3 GM in SODIUM CHLORIDE 0.9% 100 ML IVPB SCH (08:00)
[2021-03-10] MEDS: HEPARIN SODIUM,PORCINE/PF 5,000 UNIT/0.5 ML SYRINGE SQ SCH ×2 (08:00→17:14)
--- NOTE | 2021-03-10 09:04 | P.HPIM ---
History of Present Illness This is a pleasant 65 years old male with past medical history of diabetes mellitus, hyperlipidemia, hypertension, rheumatoid arthritis, hearing difficulty, cellulitis of the right leg 2 patient is a transfer from [facility] where he presented for right leg redness of one-day duration, it happens 2 days ago with no history of trauma or wound. He has cellulitis up to his distal thigh with redness, swelling and tenderness Also he has a circulation problem and he sees Dr. Turk in [place] for this He denies smoking, alcohol or illicit drugs He is diabetic on metformin 100 mg twice a day on admissionnt has fever of 101.1, slightly tachycardic at 205, blood pressure 121/70. He is saturating 96% on room air On reviewing the records from [facility] Has leukocytosis of 15.8, hemoglobin of 15.3 and platelet count slightly low at 125K Also he has mild low sodium 135, potassium 3.6. ALT is 21, AST is 30. Creatinine is elevated at 1.7 Bilirubin slightly elevated at 1.2. Magnesium 2.0. CRP at 26.17 Also patient had Doppler of the right lower extremity showing no DVT Labs from this morning are pending Review of Systems CONSTITUTIONAL: No fever, no malaise, no fatigue. HEENT: No recent visual problems or hearing problems. Denied any sore throat. CARDIOVASCULAR: No orthopnea, PND, no palpitations, no syncope. PULMONARY: No shortness of breath, no cough, no hemoptysis. GASTROINTESTINAL: No diarrhea, no nausea, no vomiting, no abdominal pain. Normoactive bowel sounds. NEUROLOGICAL: No headaches, no weakness, no numbness. HEMATOLOGICAL: Denies any bleeding or petechiae. GENITOURINARY: Denies any burning micturition, frequency, or urgency. MUSCULOSKELETAL/RHEUMATOLOGICAL: Denies any joint pain, swelling, or any muscle pain. ENDOCRINE: Denies any polyuria or polydipsia. Past Medical History Past Medical History: Diabetes Mellitus, Eye Disorder, Hearing Disorder / Deafness, Hyperlipidemia, Hypertension, Myocardial Infarction ([place]), Rheumatoid Arthritis ([place]), Thyroid Disorder Additional Past Medical History / Comment(s): Right Cataract. Hard of hearing. Hx Cellulitis right leg X2. Last Myocardial Infarction Date:: BETWEEN 2001 -2007 History of Any Multi-Drug Resistant Organisms: MRSA Date of last positivie culture/infection: 2009 MDRO Source:: LT SHOULDER Past Surgical History: Adenoidectomy, Orthopedic Surgery, Tonsillectomy Additional Past Surgical History / Comment(s): Left shoulder surgery, left knee surgery, bilateral vein stripping Past Anesthesia/Blood Transfusion Reactions: No Reported Reaction Past Psychological History: No Psychological Hx Reported Additional Psychological History / Comment(s): He is single and lives independently. Denies current tobacco or alcohol use. He is retired no experience no travel history. No animal exposures. He does relate that he has multiple children and they did visit him in the hospital Smoking Status: Never smoker Past Alcohol Use History: Rare Past Drug Use History: None Reported - Past Family History Mother Family Medical History: No Reported History Brother(s) Family Medical History: Cancer Medications and Allergies Home Medications Medication Instructions Recorded Confirmed Type Furosemide [Lasix] 20 mg PO BID 04/15/17 03/09/21 History Levothyroxine Sodium [Synthroid] 75 mcg PO DAILY 08/22/18 03/09/21 History Aspirin [Adult Low Dose Aspirin EC] 81 mg PO DAILY 04/27/20 03/09/21 History metFORMIN HCL [Glucophage Xr] 2,000 mg PO DAILY 04/27/20 03/09/21 History Ammonium Lactate Lotion 1 applic TOPICAL BID 03/09/21 03/09/21 History [Lac-Hydrin 12% Lotion] Dapagliflozin Propanediol [Farxiga] 10 mg PO DAILY 03/09/21 03/09/21 History Fluticasone Nasal [place] [Flonase 1 spray EA NOSTRIL DAILY PRN 03/09/21 03/09/21 History Nasal Garrett] Glimepiride [Amaryl] 4 mg PO DAILY 03/09/21 03/09/21 History Multivitamins, Thera [Multivitamin 1 tab PO DAILY 03/09/21 03/09/21 History (formulary)] Naproxen [EC-Naproxen] 500 mg PO BID PRN 03/09/21 03/09/21 History Rosuvastatin Calcium [Crestor] 40 mg PO DAILY 03/09/21 03/09/21 History Allergies Allergy/AdvReac Type Severity Reaction Status Date / Time No Known Allergies Allergy Verified 03/09/21 21:05 Physical Exam Vitals: Vital Signs Temp Pulse Resp BP Pulse Ox 03/10/21 01:17 101.1 F H 105 H 16 121/70 96 Intake and Output 03/09/21 03/09/21 03/10/21 14:59 22:59 06:59 Other: Weight 114.09 kg GENERAL: The patient is alert and oriented x3, not in any acute distress. Well developed, well nourished. HEENT: Pupils are round and equally reacting to light. EOMI. No scleral icterus. No conjunctival pallor. Normocephalic, atraumatic. No pharyngeal erythema. No thyromegaly. CARDIOVASCULAR: S1 and S2 present. No murmurs, rubs, or gallops. PULMONARY: Chest is clear to auscultation, no wheezing or crackles. ABDOMEN: Soft, nontender, nondistended, normoactive bowel sounds. No palpable organomegaly. -MUSCULOSKELETAL: No joint swelling or deformity. Right leg and foot swelling, tenderness, warmth. EXTREMITIES: No cyanosis, clubbing, or pedal edema. NEUROLOGICAL: Gross neurological examination did not reveal any focal deficits. SKIN: No rashes. No petechiae Results Labs: Abnormal Lab Results - Last 24 Hours (Table) 03/09/21 Range/Units 20:37 POC Glucose (mg/dL) 172 H (75-99) mg/dL Thrombosis Risk Factor Assmnt - Choose All That Apply Any of the Below Risk Factors Present?: Yes Each Factor Represents 1 point: Swollen legs (current) Each Risk Factor Represents 2 Points: Age 61-74 years Other congenital or acquired thrombophilia - If yes, enter type in comment: No Thrombosis Risk Factor Assessment Total Risk Factor Score: 3 Thrombosis Risk Factor Assessment Level: Moderate Risk Assessment and Plan Assessment: Recurrent right leg cellulitis Sepsis with leukocytosis and fever Acute kidney injury Diabetes mellitus Hyperlipidemia Hypertension History of rheumatoid arthritis Hearing difficulty History of Recurrent right leg cellulitis Plan: This is a pleasant 65 years old male who presents with recurrent right leg cellulitis change antibiotics Unasyn Infectious disease team consult Consults vascular surgery Check hemoglobin A1c. Hold metformin and continue with insulin sliding scale Labs and medication were reviewed.. Continue same treatment. Continue with symptomatic treatment. Resume home medication. Monitor lytes and vitals. DVT and GI prophylaxis. Further recommendations depends on the clinical course of the patient DVT prophylaxis: Subcutaneous heparin GI Prophylaxis: Pepcid PT/OT: Pending
[2021-03-10 09:24] LABS: HCT 40.9 % (39.6-50.0); HGB 13.5 g/dL (13.0-17.0); MCH 30.1 pg (27.0-32.0); MCV 91.3 fL (80.0-97.0); Platelet Count 125 X 10*3/uL (140-440); RBC 4.48 X 10*6/uL (4.40-5.60); RDW 14.6 % (11.5-14.5); WBC 12.82 X 10*3/uL (4.50-10.00)
[2021-03-10 10:10] LABS: African American GFR (CKD) 72.1 (60.0-200.0); Albumin 3.6 g/dL (3.80-4.90); Albumin/Globulin Ratio 1.57 (1.60-3.17); Anion Gap 12.3 mmol/L (4.00-12.00); BUN/Creat Ratio 20.83 Ratio (12.00-20.00); Calcium 8.4 mg/dL (8.7-10.3); Carbon Dioxide 20.7 mmol/L (21.6-31.8); Globulin 2.3 g/dL (1.6-3.3); Non-African American GFR(CKD) 62.2 (60.0-200.0); Potassium 3.7 mmol/L (3.5-5.5); Total Bilirubin 0.7 mg/dL (0.2-1.2); Total Protein 5.9 g/dL (6.2-8.2)
[2021-03-10 11:30] LABS: Glucose,Whole Blood 152 mg/dL (75-99)
--- NOTE | 2021-03-10 13:31 | P.GSCN ---
History of Present Illness Consult date: 03/10/21 Reason for Consult: Right lower extremity cellulitis Requesting physician: Job E Sheet History of present illness: This a pleasant 65-year-old male who presented to the emergency department as a transfer from [facility] for right lower extremity cellulitis 1 day. He has a past medical history of diabetes mellitus, hyperlipidemia, hypertension, myocardial infarction, thyroid disorder, and rheumatoid arthritis. He is a nonsmoker, no history of alcohol abuse. Patient states he started noticing some swelling and redness over the last 1 day duration. He denies any pain with walking, states he walks daily at least a mile a day. States he has history of previous cellulitis in the past, right lower extremity as well. He's had multiple right lower extremity venous Dopplers which have been negative for DVT. Patient reports he has followed up with Dr. Huber from [facility] out of [place], states he was possibly supposed to get a stent for his right lower extremity. Reviewing his medical record in 2014 he underwent an arterial ultrasound of the lower extremities showing no significant arterial disease with multiphasic Doppler waveforms throughout. On admission he was noted have a temp of 101 with mild leukocytosis. He has been started on Zosyn. Vascular surgery as well as infectious disease was consulted for right lower extremity cellulitis. He currently denies any significant pain to the right lower extremity, he has mild tenderness, there is redness up to mid thigh, he denies any current chills, fever, abdominal pain, nausea, vomiting, shortness of breath, or chest pain. Review of Systems A 14 point review systems was completed all pertinent positives and negatives as stated in the HPI Past Medical History Past Medical History: Diabetes Mellitus, Eye Disorder, Hearing Disorder / Deafn ess, Hyperlipidemia, Hypertension, Myocardial Infarction (AR), Rheumatoid Arthritis (RA), Thyroid Disorder Additional Past Medical History / Comment(s): Right Cataract. Hard of hearing. Hx Cellulitis right leg X2. Last Myocardial Infarction Date:: BETWEEN 2001 -2007 History of Any Multi-Drug Resistant Organisms: MRSA Year Discovered:: 2008 MDRO Source:: LT SHOULDER Past Surgical History: Adenoidectomy, Orthopedic Surgery, Tonsillectomy Additional Past Surgical History / Comment(s): Left shoulder surgery, left knee surgery, bilateral vein stripping Past Anesthesia/Blood Transfusion Reactions: No Reported Reaction Past Psychological History: No Psychological Hx Reported Additional Psychological History / Comment(s): He is single and lives ind ependently. Denies current tobacco or alcohol use. He is retired no experience no travel history. No animal exposures. He does relate that he has multiple children and they did visit him in the hospital Smoking Status: Never smoker Past Alcohol Use History: Rare Past Drug Use History: None Reported - Past Family History Mother Family Medical History: No Reported History Brother(s) Family Medical History: Cancer Medications and Allergies Home Medications Medication Instructions Recorded Confirmed Type Furosemide [Lasix] 20 mg PO BID 04/15/17 03/09/21 History Levothyroxine Sodium [Synthroid] 75 mcg PO DAILY 08/22/18 03/09/21 History Aspirin [Adult Low Dose Aspirin EC] 81 mg PO DAILY 04/27/20 03/09/21 History metFORMIN HCL [Glucophage Xr] 2,000 mg PO DAILY 04/27/20 03/09/21 History Ammonium Lactate Lotion 1 applic TOPICAL BID 03/09/21 03/09/21 History [Lac-Hydrin 12% Lotion] Dapagliflozin Propanediol [Farxiga] 10 mg PO DAILY 03/09/21 03/09/21 History Fluticasone Nasal [place] [Flonase 1 spray EA NOSTRIL DAILY PRN 03/09/21 03/09/21 History Nasal [place]] Glimepiride [Amaryl] 4 mg PO DAILY 03/09/21 03/09/21 History Multivitamins, Thera [Multivitamin 1 tab PO DAILY 03/09/21 03/09/21 History (formulary)] Naproxen [EC-Naproxen] 500 mg PO BID PRN 03/09/21 03/09/21 History Rosuvastatin Calcium [Crestor] 40 mg PO DAILY 03/09/21 03/09/21 History Allergies Allergy/AdvReac Type Severity Reaction Status Date / Time No Known Allergies Allergy Verified 03/09/21 21:05 Surgical - Exam Vital Signs Temp Pulse Resp BP Pulse Ox 101.1 F H 105 H 16 121/70 96 03/10/21 01:17 03/10/21 01:17 03/10/21 01:17 03/10/21 01:17 03/10/21 01:17 General appearance: The patient is alert, oriented, appears in no acute distress. Obese. HET: Head is normocephalic and atraumatic. Neck: Supple without lymphadenopathy. Trachea midline. Heart: S1 S2. Regular rate and rhythm. Lungs: Clear to auscultation.. Abdomen: Soft, nontender, nondistended. Extremities: Right lower extremity with significant swelling, redness from mid thigh down. Right lower extremity with femoral, posterior tibialis, and dorsalis pedis Doppler signal. Good capillary refill. Palpable left dorsalis pedis pulse. No swelling. Neurological: No focal deficits. Strength and sensation are grossly intact. Results - Labs 03/10/21 06:26 03/10/21 06:26 Abnormal Lab Results - Last 24 Hours (Table) 03/09/21 03/10/21 03/10/21 Range/Units 20:37 06:26 06:26 WBC 12.82 H (4.50-10.00) X 10*3/uL RDW 14.6 H (11.5-14.5) % Plt Count 125 L (140-440) X 10*3/uL Sodium 134 L (135-145) mmol/L Carbon Dioxide 20.7 L (21.6-31.8) mmol/L Anion Gap 12.30 H (4.00-12.00) mmol/L BUN/Creatinine Ratio 20.83 H (12.00-20.00) Ratio Glucose 133 H (70-110) mg/dL POC Glucose (mg/dL) 172 H (75-99) mg/dL Calcium 8.4 L (8.7-10.3) mg/dL AST 48 H (14-35) U/L Total Protein 5.9 L (6.2-8.2) g/dL Albumin 3.60 L (3.80-4.90) g/dL Albumin/Globulin Ratio 1.57 L (1.60-3.17) g/dL 03/10/21 Range/Units 06:58 WBC (4.50-10.00) X 10*3/uL RDW (11.5-14.5) % Plt Count (140-440) X 10*3/uL Sodium (135-145) mmol/L Carbon Dioxide (21.6-31.8) mmol/L Anion Gap (4.00-12.00) mmol/L BUN/Creatinine Ratio (12.00-20.00) Ratio Glucose (70-110) mg/dL POC Glucose (mg/dL) 152 H (75-99) mg/dL Calcium (8.7-10.3) mg/dL AST (14-35) U/L Total Protein (6.2-8.2) g/dL Albumin (3.80-4.90) g/dL Albumin/Globulin Ratio (1.60-3.17) g/dL Diabetes panel 03/10/21 Range/Units 06:26 Sodium 134 L (135-145) mmol/L Potassium 3.7 (3.5-5.5) mmol/L Chloride 101 (96-109) mmol/L Carbon Dioxide 20.7 L (21.6-31.8) mmol/L BUN 25.0 (9.0-27.0) mg/dL Creatinine 1.2 (0.6-1.5) mg/dL Glucose 133 H (70-110) mg/dL Calcium 8.4 L (8.7-10.3) mg/dL AST 48 H (14-35) U/L ALT 37 (10-49) U/L Alkaline Phosphatase 65 (41-126) U/L Total Protein 5.9 L (6.2-8.2) g/dL Albumin 3.60 L (3.80-4.90) g/dL Calcium panel 03/10/21 Range/Units 06:26 Calcium 8.4 L (8.7-10.3) mg/dL Albumin 3.60 L (3.80-4.90) g/dL Pituitary panel 03/10/21 Range/Units 06:26 Sodium 134 L (135-145) mmol/L Potassium 3.7 (3.5-5.5) mmol/L Chloride 101 (96-109) mmol/L Carbon Dioxide 20.7 L (21.6-31.8) mmol/L BUN 25.0 (9.0-27.0) mg/dL Creatinine 1.2 (0.6-1.5) mg/dL Glucose 133 H (70-110) mg/dL Calcium 8.4 L (8.7-10.3) mg/dL Adrenal panel 03/10/21 Range/Units 06:26 Sodium 134 L (135-145) mmol/L Potassium 3.7 (3.5-5.5) mmol/L Chloride 101 (96-109) mmol/L Carbon Dioxide 20.7 L (21.6-31.8) mmol/L BUN 25.0 (9.0-27.0) mg/dL Creatinine 1.2 (0.6-1.5) mg/dL Glucose 133 H (70-110) mg/dL Calcium 8.4 L (8.7-10.3) mg/dL Total Bilirubin 0.7 (0.2-1.2) mg/dL AST 48 H (14-35) U/L ALT 37 (10-49) U/L Alkaline Phosphatase 65 (41-126) U/L Total Protein 5.9 L (6.2-8.2) g/dL Albumin 3.60 L (3.80-4.90) g/dL Assessment and Plan Assessment: 1. Right lower extremity cellulitis 2. Diabetes mellitus 3. Coronary artery disease 4. Hyperlipidemia 5. Hypertension Plan: 1. Continue symptomatic and supportive care 2. Elevate right lower extremity 3. IV antibiotics per recommendations from infectious disease 4. Bilateral lower extremity Arterial duplex study ordered 5. Further recommendations to follow Thank you for this consultation and allowing us take part in the plan of care of your patient during his hospital stay. The impression and plan of care has been dictated as directed. Dr. Hernandez I performed a history and examination of this patient, discussed the same with the dictator. I agree with the dictator's note ,documented as a scribe. Any additional findings or plans will be noted.
[2021-03-10 13:50] LABS: Basophils # (A) 0.04 X 10*3/uL (0.00-0.10); Basophils % (A) 0.3 %; Eosinophils # (A) 0.01 X 10*3/uL (0.04-0.35); Eosinophils % (A) 0.1 %; Lymphocytes # (A) 1.07 X 10*3/uL (0.90-5.00); Lymphocytes % (A) 8.3 %; Monocytes # (A) 0.56 X 10*3/uL (0.20-1.00); Monocytes % (A) 4.4 %; Neutrophils # (A) 11.02 X 10*3/uL (1.80-7.70)
[2021-03-10 16:56] LABS: Glucose,Whole Blood 183 mg/dL (75-99)
[2021-03-10 17:35] LABS: Hemoglobin A1C 9.6 % (4.0-6.0)
[2021-03-10 20:08] LABS: Glucose,Whole Blood 229 mg/dL (75-99)
--- NOTE | 2021-03-10 23:29 | P.CONS ---
History of Present Illness - Reason for Consult Consult date: 03/10/21 right leg cellulitis Requesting physician: Carrol Tolentino - Chief Complaint right leg swelling and redness x few days - History of Present Illness Patient is a 65-year male with past medical history significant for recurrent right lower extremity cellulitis in this patient who do have a history of underlying diabetes mellitus rheumatoid arthritis patient presented to the outside facility for evaluation of increasing swelling and redness of the right lower extremity that has been going on for 2 days before presentation to the hospital patient denies having any high-grade fever did have some chills the patient did have mild dull aching pain to the right leg intensity is 3-4 out of 10 and no radiation with associated diffuse swelling and redness patient was evaluated at the [facility] patient did have lower extremity Doppler was negative for DVT he did have elevated white count patient was given a dose of antibiotic and subsequently transferred to [facility] for further evaluation, on presentation to this facility the patient did have a fever of 101 F patient did have white count of 12.82 kidney function was normal patient was started on Unasyn admitted to the hospital infectious disease was consulted for further management of antibiotic therapy Review of Systems Positive point has been mentioned in the HPI rest of the systems are negative Past Medical History Past Medical History: Diabetes Mellitus, Eye Disorder, Hearing Disorder / Deafness, Hyperlipidemia, Hypertension, Myocardial Infarction (ID), Rheumatoid Arthritis (RA), Thyroid Disorder Additional Past Medical History / Comment(s): Right Cataract. Hard of hearing. Hx Cellulitis right leg X2. Last Myocardial Infarction Date:: BETWEEN 2001 -2007 History of Any Multi-Drug Resistant Organisms: MRSA Year Discovered:: 2008 MDRO Source:: LT SHOULDER Past Surgical History: Adenoidectomy, Orthopedic Surgery, Tonsillectomy Additional Past Surgical History / Comment(s): Left shoulder surgery, left knee surgery, bilateral vein stripping Past Anesthesia/Blood Transfusion Reactions: No Reported Reaction Past Psychological History: No Psychological Hx Reported Additional Psychological History / Comment(s): He is single and lives independently. Denies current tobacco or alcohol use. He is retired no experience no travel history. No animal exposures. He does relate that he has multiple children and they did visit him in the hospital Smoking Status: Never smoker Past Alcohol Use History: Rare Past Drug Use History: None Reported - Past Family History Mother Family Medical History: No Reported History Brother(s) Family Medical History: Cancer Medications and Allergies Home Medications Medication Instructions Recorded Confirmed Type Furosemide [Lasix] 20 mg PO BID 04/15/17 03/09/21 History Levothyroxine Sodium [Synthroid] 75 mcg PO DAILY 08/22/18 03/09/21 History Aspirin [Adult Low Dose Aspirin EC] 81 mg PO DAILY 04/27/20 03/09/21 History metFORMIN HCL [Glucophage Xr] 2,000 mg PO DAILY 04/27/20 03/09/21 History Ammonium Lactate Lotion 1 applic TOPICAL BID 03/09/21 03/09/21 History [Lac-Hydrin 12% Lotion] Dapagliflozin Propanediol [Farxiga] 10 mg PO DAILY 03/09/21 03/09/21 History Fluticasone Nasal [place] [Flonase 1 spray EA NOSTRIL DAILY PRN 03/09/21 03/09/21 History Nasal [place]] Glimepiride [Amaryl] 4 mg PO DAILY 03/09/21 03/09/21 History Multivitamins, Thera [Multivitamin 1 tab PO DAILY 03/09/21 03/09/21 History (formulary)] Naproxen [EC-Naproxen] 500 mg PO BID PRN 03/09/21 03/09/21 History Rosuvastatin Calcium [Crestor] 40 mg PO DAILY 03/09/21 03/09/21 History Allergies Allergy/AdvReac Type Severity Reaction Status Date / Time No Known Allergies Allergy Verified 03/09/21 21:05 Physical Exam Vitals: Vital Signs Temp Pulse Resp BP Pulse Ox 03/10/21 08:00 98.9 F 89 18 121/70 94 L 03/10/21 01:17 101.1 F H 105 H 16 121/70 96 Intake and Output 03/09/21 03/10/21 03/10/21 22:59 06:59 14:59 Other: Weight 114.09 kg GENERAL DESCRIPTION: Elderly male lying in bed, no distress. No tachypnea or accessory muscle of respiration use. HEENT: Shows Pallor , no scleral icterus. Oral mucous membrane is dry. No pharyngeal erythema or thrush NECK: Trachea central, no thyromegaly. LUNGS: Unlabored breathing. Clear to auscultation anteriorly. No wheeze or crackle. HEART: S1, S2, regular rate and rhythm. No loud murmur ABDOMEN: Soft, no tenderness , guarding or rigidity, no organomegaly EXTREMITIES: Right leg with diffuse swelling and redness warm to touch no open wound or any drainage SKIN: No rash, no masses palpable. NEUROLOGICAL: The patient is awake, alert, oriented x3, mood and affect normal. Results CBC & Chem 7: 03/11/21 05:19 03/12/21 04:38 Labs: Abnormal Lab Results - Last 24 Hours (Table) 03/09/21 03/10/21 03/10/21 Range/Units 20:37 06:26 06:26 WBC 12.82 H (4.50-10.00) X 10*3/uL RDW 14.6 H (11.5-14.5) % Plt Count 125 L (140-440) X 10*3/uL Sodium 134 L (135-145) mmol/L Carbon Dioxide 20.7 L (21.6-31.8) mmol/L Anion Gap 12.30 H (4.00-12.00) mmol/L BUN/Creatinine Ratio 20.83 H (12.00-20.00) Ratio Glucose 133 H (70-110) mg/dL POC Glucose (mg/dL) 172 H (75-99) mg/dL Calcium 8.4 L (8.7-10.3) mg/dL AST 48 H (14-35) U/L Total Protein 5.9 L (6.2-8.2) g/dL Albumin 3.60 L (3.80-4.90) g/dL Albumin/Globulin Ratio 1.57 L (1.60-3.17) g/dL 03/10/21 03/10/21 Range/Units 06:58 11:27 WBC (4.50-10.00) X 10*3/uL RDW (11.5-14.5) % Plt Count (140-440) X 10*3/uL Sodium (135-145) mmol/L Carbon Dioxide (21.6-31.8) mmol/L Anion Gap (4.00-12.00) mmol/L BUN/Creatinine Ratio (12.00-20.00) Ratio Glucose (70-110) mg/dL POC Glucose (mg/dL) 152 H 152 H (75-99) mg/dL Calcium (8.7-10.3) mg/dL AST (14-35) U/L Total Protein (6.2-8.2) g/dL Albumin (3.80-4.90) g/dL Albumin/Globulin Ratio (1.60-3.17) g/dL Assessment and Plan Assessment: patient presented to hospital with sepsis in this patient who did have fever elevated white count source is acute right lower extremity cellulitis in this patient who did have diffuse swelling of the right leg and acute onset likely concerning for streptococcal cellulitis (1) Cellulitis of right leg Current Visit: Yes Status: Acute Code(s): L03.115 - CELLULITIS OF RIGHT LOWER LIMB SNOMED Code(s): 256639947 Plan: 1-discontinue Unasyn 2-start the patient on cefazolin 2 g every 8 hours 3-Hector wrap to the right leg from just above the toe to below the knee We will follow on clinical condition and cultures to further adjust medication if needed Thank you for this consultation we will follow the patient along with you Time with Patient: Greater than 30
[2021-03-11] MEDS: HEPARIN SODIUM,PORCINE/PF 5,000 UNIT/0.5 ML SYRINGE SQ SCH ×4 (01:03→23:04)
[2021-03-11 06:03] LABS: Basophils % (A) 0 %; Eosinophils # (A) 0.2 k/uL (0-0.7); Eosinophils % (A) 3 %; HCT 39.4 % (39.0-53.0); HGB 13.5 gm/dL (13.0-17.5); Lymphocytes # (A) 1.3 k/uL (1.0-4.8); Lymphocytes % (A) 15 %; MCH 31.3 pg (25.0-35.0); MCHC 34.3 g/dL (31.0-37.0); MCV 91.4 fL (80.0-100.0); Monocytes # (A) 0.5 k/uL (0-1.0); Monocytes % (A) 6 %; Neutrophils # (A) 6.8 k/uL (1.3-7.7); Neutrophils % (A) 74 %; Platelet Count 127 k/uL (150-450); RBC 4.31 m/uL (4.30-5.90); RDW 14.5 % (11.5-15.5); WBC 9.2 k/uL (3.8-10.6)
[2021-03-11] MEDS: LEVOTHYROXINE 75 MCG TAB PO SCH (06:03)
[2021-03-11 06:59] LABS: Glucose,Whole Blood 185 mg/dL (75-99)
[2021-03-11] MEDS: INSULIN ASPART (NovoLOG) 100 UNIT/ML VIAL SQ SCH ×4 (07:33→22:17)
[2021-03-11] MEDS: FAMOTIDINE 20 MG/2 ML VIAL IV SCH ×2 (07:34→22:17)
[2021-03-11] MEDS: ATORVASTATIN 80 MG TAB PO SCH (07:40)
[2021-03-11] MEDS: ASPIRIN 81 MG PO SCH (07:48)
[2021-03-11 11:28] LABS: Glucose,Whole Blood 228 mg/dL (75-99)
[2021-03-11 12:48] VITALS: BMI 38.2
--- NOTE | 2021-03-11 15:21 | P.PN ---
Subjective This is a pleasant 65 years old male with past medical history of diabetes mellitus, hyperlipidemia, hypertension, rheumatoid arthritis, hearing di fficulty, cellulitis of the right leg 2 patient is a transfer from [facility] where he presented for right leg redness of one-day duration, it happens 2 days ago with no history of trauma or wound. He has cellulitis up to his distal thigh with redness, swelling and tenderness Also he has a circulation problem and he sees [facility] for this He denies smoking, alcohol or illicit drugs He is diabetic on metformin 100 mg twice a day on admissionnt has fever of 101.1, slightly tachycardic at 205, blood pressure 121/70. He is saturating 96% on room air On reviewing the records from [facility] Has leukocytosis of 15.8, hemoglobin of 15.3 and platelet count slightly low at 125K Also he has mild low sodium 135, potassium 3.6. ALT is 21, AST is 30. Creatinine is elevated at 1.7 Bilirubin slightly elevated at 1.2. Magnesium 2.0. CRP at 26.17 Also patient had Doppler of the right lower extremity showing no DVT Labs from this morning are pending 03/11/2021 Patient right leg cellulitis improving Hemodynamically stable His hemoglobin A1c is 9.2%. We will resume his home medication of MRI and metformin. sabrina is on hold for now Muscular surgery input is appreciated and they recommended arterial Doppler. Discussed with staff to ordered Objective - Vital Signs Vital signs: Vital Signs Temp 99.4 F 03/11/21 07:39 Pulse 76 03/11/21 07:39 Resp 18 03/11/21 09:37 BP 122/74 03/11/21 07:39 Pulse Ox 95 03/11/21 07:39 Intake & Output 03/10/21 03/11/21 03/11/21 18:59 06:59 18:59 Intake Total 200 Balance 200 Weight 114.09 kg Intake: Oral 200 Other: Voiding Method Toilet # Voids 3 3 - Exam GENERAL: The patient is alert and oriented x3, not in any acute distress. Well developed, well nourished. HEENT: Pupils are round and equally reacting to light. EOMI. No scleral icterus. No conjunctival pallor. Normocephalic, atraumatic. No pharyngeal erythema. No thyromegaly. CARDIOVASCULAR: S1 and S2 present. No murmurs, rubs, or gallops. PULMONARY: Chest is clear to auscultation, no wheezing or crackles. ABDOMEN: Soft, nontender, nondistended, normoactive bowel sounds. No palpable organomegaly. -MUSCULOSKELETAL: No joint swelling or deformity. Right leg and foot swelling, tenderness, warmth. EXTREMITIES: No cyanosis, clubbing, or pedal edema. NEUROLOGICAL: Gross neurological examination did not reveal any focal deficits. SKIN: No rashes. No petechiae - Labs CBC & Chem 7: 03/11/21 05:19 03/10/21 06:26 Labs: Abnormal Lab Results - Last 24 Hours (Table) 03/10/21 03/10/21 03/10/21 Range/Units 06:26 16:51 20:06 Plt Count (150-450) k/uL Plt Count Comment DECREASED A Immature Gran # 0.12 H (0.00-0.04) X 10*3/uL Neutrophils # 11.02 H (1.80-7.70) X 10*3/uL Eosinophils # 0.01 L (0.04-0.35) X 10*3/uL POC Glucose (mg/dL) 183 H 229 H (75-99) mg/dL Hemoglobin A1c (4.0-6.0) % 03/10/21 03/11/21 03/11/21 Range/Units Unknown 05:19 06:58 Plt Count 127 L (150-450) k/uL Plt Count Comment Immature Gran # (0.00-0.04) X 10*3/uL Neutrophils # (1.80-7.70) X 10*3/uL Eosinophils # (0.04-0.35) X 10*3/uL POC Glucose (mg/dL) 185 H (75-99) mg/dL Hemoglobin A1c 9.6 H (4.0-6.0) % 03/11/21 Range/Units 11:27 Plt Count (150-450) k/uL Plt Count Comment Immature Gran # (0.00-0.04) X 10*3/uL Neutrophils # (1.80-7.70) X 10*3/uL Eosinophils # (0.04-0.35) X 10*3/uL POC Glucose (mg/dL) 228 H (75-99) mg/dL Hemoglobin A1c (4.0-6.0) % Microbiology - Last 24 Hours (Table) 03/10/21 02:03 Blood Culture - Preliminary Blood No Growth after 24 hours Assessment and Plan Assessment: Recurrent right leg cellulitis Sepsis with leukocytosis and fever Acute kidney injury Diabetes mellitus Hyperlipidemia Hypertension History of rheumatoid arthritis Hearing difficulty History of Recurrent right leg cellulitis Plan: This is a pleasant 65 years old male who presents with recurrent right leg cellulitis change antibiotics to cefazolin Infectious disease team consult Consults vascular surgery , recommended arterial Doppler Resume metformin and Amaryl and continue with insulin sliding scale . Hold farxiga Labs and medication were reviewed.. Continue same treatment. Continue with symptomatic treatment. Resume home medication. Monitor lytes and vitals. DVT and GI prophylaxis. Further recommendations depends on the clinical course of the patient DVT prophylaxis: Subcutaneous heparin GI Prophylaxis: Pepcid PT/OT: Pending
--- NOTE | 2021-03-11 15:54 | PN ---
PROGRESS NOTE DATE OF SERVICE: 03/11/2021 REASON FOR FOLLOWUP: Acute right lower extremity cellulitis. INTERVAL HISTORY: The patient is afebrile. The patient is breathing comfortably. Overall pain and discomfort to the right leg have decreased. No chest pain, shortness of breath or cough. No abdominal pain or diarrhea. PHYSICAL EXAMINATION: Blood pressure 149/75 with a pulse of 66, temperature 98.7. He is 95% on room air. GENERAL DESCRIPTION: General description is an elderly male up in the chair in no distress. RESPIRATORY SYSTEM: Unlabored breathing. Clear to auscultation anteriorly. HEART: S1, S2. Regular rate and rhythm. ABDOMEN: Soft. No tenderness. LABS: The patient's white count has normalized. Cultures so far negative. DIAGNOSTIC IMPRESSION AND PLAN: Patient with acute right lower extremity cellulitis in this patient who has shown overall improvement on cefazolin; to continue. Hector wrap to the leg to keep some of the swelling down. Monitor his clinical course closely. MMODL / IJN: [id number] /
[2021-03-11 16:22] LABS: Glucose,Whole Blood 286 mg/dL (75-99)
[2021-03-11] MEDS: metFORMIN 500 MG TAB PO SCH (16:32)
[2021-03-11 21:57] LABS: Glucose,Whole Blood 202 mg/dL (75-99)
[2021-03-11] MEDS: GLIMEPIRIDE 2 MG TAB PO SCH (22:17)
[2021-03-11] MEDS: FUROSEMIDE 20 MG TAB PO SCH (22:17)
[2021-03-12] MEDS: LEVOTHYROXINE 75 MCG TAB PO SCH (04:34)
[2021-03-12 05:33] LABS: African American GFR (CKD) >90 (>60 ml/min/1.73 sqM); Anion Gap 8 mmol/L; Blood Urea Nitrogen 20 mg/dL (9-20); Calcium 8.8 mg/dL (8.4-10.2); Carbon Dioxide 24 mmol/L (22-30); Chloride 104 mmol/L (98-107); Glucose 147 mg/dL (74-99); Non-African American GFR(CKD) 87 (>60 ml/min/1.73 sqM); Potassium 3.8 mmol/L (3.5-5.1); Sodium 136 mmol/L (137-145)
[2021-03-12 07:07] LABS: Glucose,Whole Blood 147 mg/dL (75-99)
[2021-03-12] MEDS: INSULIN ASPART (NovoLOG) 100 UNIT/ML VIAL SQ SCH ×4 (07:50→21:02)
[2021-03-12] MEDS: FAMOTIDINE 20 MG/2 ML VIAL IV SCH ×2 (09:40→21:01)
[2021-03-12] MEDS: ATORVASTATIN 80 MG TAB PO SCH (09:41)
[2021-03-12] MEDS: HEPARIN SODIUM,PORCINE/PF 5,000 UNIT/0.5 ML SYRINGE SQ SCH ×3 (09:41→23:20)
[2021-03-12] MEDS: FUROSEMIDE 20 MG TAB PO SCH ×2 (09:41→21:02)
[2021-03-12] MEDS: ASPIRIN 81 MG PO SCH (09:41)
[2021-03-12] MEDS: GLIMEPIRIDE 2 MG TAB PO SCH ×2 (09:41→21:01)
[2021-03-12] MEDS: metFORMIN 500 MG TAB PO SCH ×2 (09:42→17:08)
--- NOTE | 2021-03-12 10:03 | P.PN ---
Subjective This is a pleasant 65 years old male with past medical history of diabetes mellitus, hyperlipidemia, hypertension, rheumatoid arthritis, hearing di fficulty, cellulitis of the right leg 2 patient is a transfer from [facility] where he presented for right leg redness of one-day duration, it happens 2 days ago with no history of trauma or wound. He has cellulitis up to his distal thigh with redness, swelling and tenderness Also he has a circulation problem and he sees Dr. Turk in [place] [facility] for this He denies smoking, alcohol or illicit drugs He is diabetic on metformin 100 mg twice a day on admissionnt has fever of 101.1, slightly tachycardic at 205, blood pressure 121/70. He is saturating 96% on room air On reviewing the records from [facility] Has leukocytosis of 15.8, hemoglobin of 15.3 and platelet count slightly low at 125K Also he has mild low sodium 135, potassium 3.6. ALT is 21, AST is 30. Creatinine is elevated at 1.7 Bilirubin slightly elevated at 1.2. Magnesium 2.0. CRP at 26.17 Also patient had Doppler of the right lower extremity showing no DVT Labs from this morning are pending 03/11/2021 Patient right leg cellulitis improving Hemodynamically stable His hemoglobin A1c is 9.2%. We will resume his home medication of MRI and metformin. sabrina is on hold for now Muscular surgery input is appreciated and they recommended arterial Doppler. Discussed with staff to ordered 03/12/2021 His right leg cellulitis improving daily and gradually, now is mainly located in the right leg. Vitals stable, no more fevers since admission. He is still on cefazolin 2 g 3 times a day. Infectious disease and vascular surgery team on the case, and follow the recommendations Objective - Vital Signs Vital signs: Vital Signs Temp 98.6 F 03/12/21 07:52 Pulse 72 03/12/21 07:52 Resp 18 03/12/21 07:52 BP 104/57 03/12/21 07:52 Pulse Ox 97 03/12/21 07:52 Intake & Output 03/11/21 03/12/21 03/12/21 18:59 06:59 18:59 Intake Total 500 Balance 500 Weight 114.09 kg Intake: Oral 500 Other: Voiding Method Toilet Toilet # Voids 2 2 # Bowel Movements 0 - Exam GENERAL: The patient is alert and oriented x3, not in any acute distress. Well developed, well nourished. HEENT: Pupils are round and equally reacting to light. EOMI. No scleral icterus. No conjunctival pallor. Normocephalic, atraumatic. No pharyngeal erythema. No thyromegaly. CARDIOVASCULAR: S1 and S2 present. No murmurs, rubs, or gallops. PULMONARY: Chest is clear to auscultation, no wheezing or crackles. ABDOMEN: Soft, nontender, nondistended, normoactive bowel sounds. No palpable organomegaly. -MUSCULOSKELETAL: No joint swelling or deformity. Right leg and foot swelling, tenderness, warmth. Improvement EXTREMITIES: No cyanosis, clubbing, or pedal edema. NEUROLOGICAL: Gross neurological examination did not reveal any focal deficits. SKIN: No rashes. No petechiae - Labs CBC & Chem 7: 03/11/21 05:19 03/12/21 04:38 Labs: Abnormal Lab Results - Last 24 Hours (Table) 03/11/21 03/11/21 03/11/21 Range/Units 11:27 16:20 21:54 Sodium (137-145) mmol/L Glucose (74-99) mg/dL POC Glucose (mg/dL) 228 H 286 H 202 H (75-99) mg/dL 03/12/21 03/12/21 Range/Units 04:38 07:06 Sodium 136 L (137-145) mmol/L Glucose 147 H (74-99) mg/dL POC Glucose (mg/dL) 147 H (75-99) mg/dL Microbiology - Last 24 Hours (Table) 03/10/21 02:03 Blood Culture - Preliminary Blood No Growth after 48 hours Assessment and Plan Assessment: Recurrent right leg cellulitis Sepsis with leukocytosis and fever Acute kidney injury Diabetes mellitus Hyperlipidemia Hypertension History of rheumatoid arthritis Hearing difficulty History of Recurrent right leg cellulitis Plan: This is a pleasant 65 years old male who presents with recurrent right leg c ellulitis change antibiotics to cefazolin Infectious disease team consult ConsultED vascular surgery , recommended arterial Doppler Resume metformin and Amaryl and continue with insulin sliding scale . Hold farxiga Labs and medication were reviewed.. Continue same treatment. Continue with symptomatic treatment. Resume home medication. Monitor lytes and vitals. DVT and GI prophylaxis. Further recommendations depends on the clinical course of the patient DVT prophylaxis: Subcutaneous heparin GI Prophylaxis: Pepcid PT/OT: Pending
[2021-03-12 11:23] LABS: Glucose,Whole Blood 332 mg/dL (75-99)
--- NOTE | 2021-03-12 12:04 | P.PN ---
Subjective Progress Note Date: 03/12/21 Patient seen and examined. Overall feels his cellulitis is improved. Denies any pain in his lower extremities. Objective - Vital Signs Vital signs: Vital Signs Temp 98.6 F 03/12/21 07:52 Pulse 72 03/12/21 07:52 Resp 18 03/12/21 07:52 BP 104/57 03/12/21 07:52 Pulse Ox 97 03/12/21 07:52 Intake & Output 03/11/21 03/12/21 03/12/21 18:59 06:59 18:59 Intake Total 500 Balance 500 Weight 114.09 kg Intake: Oral 500 Other: Voiding Method Toilet Toilet Toilet # Voids 2 2 # Bowel Movements 0 - Exam Gen. is a pleasant cooperative male in no acute distress. HEENT is normocephalic, atraumatic, extraocular motion intact abdomen is obese, soft, nontender nondistended. Extremities the left lower extremity is normal without any evidence of swelling or edema. The right lower extremity has decreased erythema. Positive for 2+ pitting edema - Labs CBC & Chem 7: 03/11/21 05:19 03/12/21 04:38 Labs: Abnormal Lab Results - Last 24 Hours (Table) 03/11/21 03/11/21 03/12/21 Range/Units 16:20 21:54 04:38 Sodium 136 L (137-145) mmol/L Glucose 147 H (74-99) mg/dL POC Glucose (mg/dL) 286 H 202 H (75-99) mg/dL 03/12/21 03/12/21 Range/Units 07:06 11:21 Sodium (137-145) mmol/L Glucose (74-99) mg/dL POC Glucose (mg/dL) 147 H 332 H (75-99) mg/dL Microbiology - Last 24 Hours (Table) 03/10/21 02:03 Blood Culture - Preliminary Blood No Growth after 48 hours Assessment and Plan Assessment: right lower extremity cellulitis Right lower extremity swelling Previously diagnosed iliac vein compression syndrome possibly Plan: Overall Isidro is appearing improved on antibiotics. We will plan to follow up with him as an outpatient regarding planning going forward. We would need to re-obtain reflux studies to evaluate if he is a candidate for intervention, it sounds like previously he has had recommendations to undergo iliac vein stenting but it was never carried out. No acute surgical interventions at this time are indicated
[2021-03-12 16:26] LABS: Glucose,Whole Blood 163 mg/dL (75-99)
--- NOTE | 2021-03-12 18:39 | PN ---
PROGRESS NOTE DATE OF SERVICE: 03/12/2021 REASON FOR FOLLOWUP: Right lower extremity cellulitis. INTERVAL HISTORY: The patient is afebrile, feeling better, breathing comfortably. No chest pain. No shortness of breath or cough. No abdominal pain or any pain to the right lower extremity. Overall swelling and redness have slightly decreased. PHYSICAL EXAMINATION: Blood pressure 122/75, pulse of 62, temperature 98.6. He is 97% on room air. GENERAL DESCRIPTION: General description is an elderly male lying in bed in no distress. RESPIRATORY SYSTEM: Unlabored breathing. Clear to auscultation anteriorly. HEART: S1, S2. Regular rate and rhythm. ABDOMEN: Soft. No tenderness. Right leg swelling and redness have slightly decreased. LABS: BUN of 20, creatinine 0.91. DIAGNOSTIC IMPRESSION AND PLAN: Patient with acute right lower extremity cellulitis with diffuse swelling and redness. The patient seems to have shown slow clinical improvement with cefazolin; to continue. Hector wrap needs to be applied to keep the swelling down and if the patient continues to improve, hopefully finish therapy with oral antibiotics. Continue supportive care. MMODL / IJN: [id number] /
[2021-03-12 19:54] LABS: Glucose,Whole Blood 196 mg/dL (75-99)
[2021-03-13] MEDS: LEVOTHYROXINE 75 MCG TAB PO SCH (05:21)
[2021-03-13 06:47] LABS: Glucose,Whole Blood 139 mg/dL (75-99)
[2021-03-13] MEDS: INSULIN ASPART (NovoLOG) 100 UNIT/ML VIAL SQ SCH ×2 (07:28→12:27)
[2021-03-13 07:41] VITALS: RESP 18
[2021-03-13] MEDS: FUROSEMIDE 20 MG TAB PO SCH (08:06)
[2021-03-13] MEDS: FAMOTIDINE 20 MG/2 ML VIAL IV SCH (08:06)
[2021-03-13] MEDS: ATORVASTATIN 80 MG TAB PO SCH (08:06)
[2021-03-13] MEDS: GLIMEPIRIDE 2 MG TAB PO SCH (08:06)
[2021-03-13] MEDS: ASPIRIN 81 MG PO SCH (08:06)
[2021-03-13] MEDS: metFORMIN 500 MG TAB PO SCH (08:06)
[2021-03-13] MEDS: HEPARIN SODIUM,PORCINE/PF 5,000 UNIT/0.5 ML SYRINGE SQ SCH (08:07)
--- NOTE | 2021-03-13 10:10 | P.PN ---
Subjective Progress Note Date: 03/13/21 Patient is seen and examined lying in bed. He states his redness and swelling has improved significantly. He has been afebrile. He states that he was told there was a possibility he may be discharged. Objective - Vital Signs Vital signs: Vital Signs Temp 98.5 F 03/13/21 07:40 Pulse 53 L 03/13/21 07:40 Resp 18 03/13/21 07:40 BP 118/74 03/13/21 07:40 Pulse Ox 96 03/13/21 07:40 Intake & Output 03/12/21 03/13/21 03/13/21 18:59 06:59 18:59 Intake Total 590 580 Balance 590 580 Intake: Intake, IV Titration 50 100 Amount ceFAZolin 2 gm In Sodium 50 100 Chloride 0.9% 50 ml @ 100 mls/hr IVPB Q8HR [facility] Rx# :[id number] Oral 540 480 Other: Voiding Method Toilet # Voids 2 3 - Exam General appearance: The patient is alert, oriented, appears in no acute distress. HET: Head is normocephalic and atraumatic. Neck: Supple without lymphadenopathy. Trachea midline. Extremities: Left lower extremity without any evidence of swelling or edema, palpable dorsalis pedis pulse. Right lower extremity has decreased erythema, positive for +1 pitting edema, palpable dorsalis pedis pulse. Good capillary refill. Neurological: No focal deficits. - Labs CBC & Chem 7: 03/11/21 05:19 03/12/21 04:38 Labs: Abnormal Lab Results - Last 24 Hours (Table) 03/12/21 03/12/21 03/12/21 Range/Units 11:21 16:22 19:52 POC Glucose (mg/dL) 332 H 163 H 196 H (75-99) mg/dL 03/13/21 Range/Units 06:46 POC Glucose (mg/dL) 139 H (75-99) mg/dL Microbiology - Last 24 Hours (Table) 03/10/21 02:03 Blood Culture - Preliminary Blood No Growth after 72 hours Assessment and Plan Assessment: 1. Right lower extremity cellulitis 2. Right lower extremity swelling 3. Previously diagnosed possible iliac pain compression syndrome 4. Diabetes mellitus 5. Coronary artery disease 6. Hyperlipidemia 7. Hypertension Plan: He appears to be improving on antibiotics. He will follow up outpatient regarding plan going forward. Recommend obtaining reflux studies to evaluate if he is a candidate for intervention, as patient states he was recommended to undergo iliac vein stenting but this has not been carried out. There is no acute surgical intervention at this time indicated. Patient may be discharged home from a vascular surgical standpoint. Thank you for this consultation, we will sign off at this time. The impression and plan of care has been dictated as directed. Dr. Joshi I performed a history and examination of this patient, discussed the same with the dictator. I agree with the dictator's note ,documented as a scribe. Any additional findings or plans will be noted.
[2021-03-13 10:58] LABS: Glucose,Whole Blood 230 mg/dL (75-99)
[2021-03-13] MEDS: ACETAMINOPHEN TAB 325 MG TAB PO PRN (12:28)
[2021-03-13 13:32] VITALS: BP 134/76; PULSE 69; TEMP 97.9
--- NOTE | 2021-03-13 16:29 | PN ---
PROGRESS NOTE DATE OF SERVICE: 03/13/2021 REASON FOR FOLLOWUP: Right lower extremity cellulitis. INTERVAL HISTORY: The patient is afebrile. The patient is breathing comfortably. Denies any chest pain, shortness of breath or cough. No nausea, vomiting. No abdominal pain. Overall pain, discomfort and dryness has decreased. PHYSICAL EXAMINATION: Blood pressure 118/74 with a pulse of 63, temperature 98.5. He is 96% on room air. General description is an elderly male lying in bed in no distress. Respiratory system: Unlabored breathing, clear to auscultation anteriorly. Heart S1, S2. Regular rate and rhythm. Abdomen soft, no tenderness. Right leg swelling has decreased. LABS: No new labs have been obtained today. DIAGNOSTIC IMPRESSION AND PLAN: Patient with acute right lower extremity cellulitis in this patient who has shown overall improvement on the cefazolin. Finish therapy with oral Keflex 500 mg p.o. q.6 hours for 10 days. Hector wrap to the leg to keep the swelling down and close outpatient followup. MMODL / IJN: [id number] /
--- NOTE | 2021-03-14 08:58 | P.DS ---
Providers Date of admission: 03/09/21 20:05 Expected date of discharge: 03/13/21 Attending physician: Carrol Tolentino Consults: 03/09/21 22:08 Consult Physician Routine Consulting Provider: Jostin Mtz Consult Reason/Comments: Cellulitis Do you want consulting provider notified?: Yes, Notify in am Placement Type Exists?: Yes 03/10/21 09:01 Consult Physician Urgent Consulting Provider: Graciela Hernandez Consult Reason/Comments: right leg cellulitis, recurrent Do you want consulting provider notified?: Yes Primary care physician: Stated None Hospital Course: Final diagnosis Recurrent right leg cellulitis Sepsis with leukocytosis and fever Acute kidney injury Diabetes mellitus Hyperlipidemia Hypertension History of rheumatoid arthritis Hearing difficulty History of Recurrent right leg cellulitis Discharge disposition Patient is being discharged in a stable condition with guarded prognosis to home. Patient will follow-up with Marilyn Bright out of [place] upon discharge. Patient also instructed to follow-up with vascular surgery Dr. Hernandez in the outpatient setting in 2 weeks. Patient will continue with a short course of oral antibiotics in the form of Keflex 500 mg every 6 hours for the next 10 days. Total time taken is greater than 35 minutes. Hospital course This is a 65-year-old male who came from being transferred from [facility] for further evaluation for cellulitis of the right leg and was started on IV antibiotics and infectious disease following. Patient was continued on cefazolin along with Hector wraps to the lower extremities and showed significant improvement. Patient will continue on oral Keflex 500 mg every 6 hours for the next 10 days to complete the course. Patient also instructed to continue with Hector wrap from the toes up to the knee and elevate lower extremities while at rest. Patient does see a provider in [place] and instructed to follow-up with them upon discharge. Currently no reports of chest pain, shortness of breath, or palpitations. Patient is afebrile. No reports of nausea or vomiting and patient is tolerating diet. Patient will be discharged home today. On exam vital signs are stable. Cardio S1, S2 are muffled. Respiratory shows diminished breath sounds at the bases with no wheezing or rhonchi noted. Abdomen is soft , obese, and nontender. Nervous system shows no focal deficits. Please refer to medication reconciliation sheet for a list of medications. Patient Condition at Discharge: Stable Plan - Discharge Summary Discharge Rx Participant: No New Discharge Prescriptions: New Cephalexin [Keflex] 500 mg PO Q6HR 10 Days #40 cap Acetaminophen Tab [Tylenol] 650 mg PO Q6HR PRN tab PRN Reason: Fever And/ Or Pain Continue Furosemide [Lasix] 20 mg PO BID Levothyroxine Sodium [Synthroid] 75 mcg PO DAILY metFORMIN HCL [Glucophage XR] 2,000 mg PO DAILY Aspirin [Adult Low Dose Aspirin EC] 81 mg PO DAILY Dapagliflozin Propanediol [Farxiga] 10 mg PO DAILY Multivitamins, Thera [Multivitamin (formulary)] 1 tab PO DAILY Glimepiride [Amaryl] 4 mg PO DAILY Fluticasone Nasal [place] [Flonase Nasal [place]] 1 spray EA NOSTRIL DAILY PRN PRN Reason: Allergy Symptoms Ammonium Lactate Lotion [Lac-Hydrin 12% Lotion] 1 applic TOPICAL BID Rosuvastatin Calcium [Crestor] 40 mg PO DAILY Discontinued Naproxen [EC-Naproxen] 500 mg PO BID PRN PRN Reason: Pain Discharge Medication List Furosemide [Lasix] 20 mg PO BID 04/15/17 [History] Levothyroxine Sodium [Synthroid] 75 mcg PO DAILY 08/22/18 [History] Aspirin [Adult Low Dose Aspirin EC] 81 mg PO DAILY 04/27/20 [History] metFORMIN HCL [Glucophage XR] 2,000 mg PO DAILY 04/27/20 [History] Ammonium Lactate Lotion [Lac-Hydrin 12% Lotion] 1 applic TOPICAL BID 03/09/21 [History] Dapagliflozin Propanediol [Farxiga] 10 mg PO DAILY 03/09/21 [History] Fluticasone Nasal [place] [Flonase Nasal [place]] 1 spray EA NOSTRIL DAILY PRN 03/09/21 [History] Glimepiride [Amaryl] 4 mg PO DAILY 03/09/21 [History] Multivitamins, Thera [Multivitamin (formulary)] 1 tab PO DAILY 03/09/21 [History] Rosuvastatin Calcium [Crestor] 40 mg PO DAILY 03/09/21 [History] Acetaminophen Tab [Tylenol] 650 mg PO Q6HR PRN tab 03/13/21 [Rx] Cephalexin [Keflex] 500 mg PO Q6HR 10 Days #40 cap 03/13/21 [Rx] Follow up Appointment(s)/Referral(s): Graciela Hernandez DO [STAFF PHYSICIAN] - 2 Weeks (OFFICE CLOSED. PLEASE CALL TO MAKE APPOINTMENT. ) Patient Instructions/Handouts: Cellulitis (DC) Activity/Diet/Wound Care/Special Instructions: Activity Limited until follow-up Follow up with primary care provider Marilyn bright on discharge Follow-up with vascular surgery Dr. Hernandez outpatient Continue antibiotics until finished Continue to elevate lower extremity is well-dressed Hector wrap to the right leg just above the toes to the knee Continue consistent carb diet Monitor blood sugars and keep a close diary for primary care follow-up Discharge Disposition: HOME SELF-CARE
== END 2021-03-13 15:40 | disposition home or self-care (01) | DRG 872 ==
LOC: 4SSUR 20:05
PROVIDERS: ADMIT Internal Medicine; ATTEND Internal Medicine
DX: A41.9 Sepsis, unspecified organism (principal); L03.115 Cellulitis of right lower limb; Z16.24 Resistance to multiple antibiotics; N17.9 Acute kidney failure, unspecified; I87.1 Compression of vein; E11.9 Type 2 diabetes mellitus without complications; E66.9 Obesity, unspecified; E78.5 Hyperlipidemia, unspecified; H91.90 Unspecified hearing loss, unspecified ear; I10 Essential (primary) hypertension; I25.10 Atherosclerotic heart disease of native coronary artery without angina pectoris; I25.2 Old myocardial infarction; Z79.899 Other long term (current) drug therapy; Z79.84 Long term (current) use of oral hypoglycemic drugs; Z79.890 Hormone replacement therapy; Z79.82 Long term (current) use of aspirin
CPT/HCPCS: 80048; 80053; 83036; 85025; 87040

== ENCOUNTER 2021-05-04 09:18 | Day surgery (SDC) | payer MEDICARE, OTHER ==
[2021-05-02 09:08] VITALS: BMI 35.6
[~2021-05-04 09:18] MED LIST changes: -ACETAMINOPHEN TAB 500 MG TAB PO ONE; +ALPRAZolam 0.25 MG TAB PO PRN; +ASPIRIN 325 MG TAB PO PRN; -DEXAMETHASONE SOD PHOSPHATE 10 MG/ML 1 ML VIAL IV ONE; -HYDROmorphone 0.5 MG/0.5 ML SYRINGE IVP PRN; -MELOXICAM 7.5 MG TAB PO ONE; -MIDAZOLAM 2 MG/2 ML VIAL IV PRN; -ONDANSETRON 4 MG/2 ML VIAL IVP ONE; +SODIUM CHLORIDE 0.9% 1,000 ML in EMPTY BAG 1 BAG IV ONE; -TRANEXAMIC ACID 1,000 MG in SODIUM CHLORIDE 0.9% 100 ML IVPB ONE; -VANCOMYCIN 1,750 MG in SODIUM CHLORIDE 0.9% 500 ML 500 ML IVPB ONE
[2021-05-04 09:40] VITALS: RESP 18; TEMP 98.4
[2021-05-04 09:45] LABS: Glucose,Whole Blood 242 mg/dL (75-99)
[2021-05-04] MEDS ORDERED: LIDOCAINE 1% INJ 10MG/ML (20 ML MDV) ONE (10:19)
[2021-05-04] MEDS ORDERED: fentaNYL (PF) 50 MCG/ML 2 ML AMP ONE (10:25)
[2021-05-04] MEDS ORDERED: fentaNYL (PF) 50 MCG/ML 2 ML AMP IV ONE (10:34)
[2021-05-04] MEDS ORDERED: MIDAZOLAM 2 MG/2 ML VIAL IV ONE (10:34)
[2021-05-04] MEDS ORDERED: LIDOCAINE 1% INJ 10MG/ML (20 ML MDV) SQ ONE (10:36)
[2021-05-04] MEDS ORDERED: IOPAMIDOL-250 100ML BTL IV ONE (11:25)
[2021-05-04] MEDS ORDERED: INSULIN ASPART (NovoLOG) 100 UNIT/ML VIAL SQ SCH (12:30)
--- NOTE | 2021-05-04 12:34 | P.OP ---
Date of Procedure: 05/04/21 Description of Procedure: Preoperative diagnosis: [Bilateral lower extremity edema, deep venous reflux, chronic recurrent cellulitis bilateral lower extremities] Postoperative diagnosis: Same Procedure: [#1 ultrasound-guided right common femoral vein access #2 right iliofemoral venogram #3 ultrasound-guided left common femoral vein access #4 left iliofemoral venogram #5 IVUS vena cava #6 IVUS right common iliac vein #7 IVUS right external iliac vein #8 IVUS right common femoral vein #9 IVUS left common iliac vein #10 IVUS left external iliac vein #11 IVUS left common femoral vein #12 Percutaneous right external iliac vein stent placement, 16 x 100 Abre #13 percutaneous transluminal balloon venoplasty of right external iliac vein] Surgeon: Graciela Hernandez D.O. EBL: [Less than 10 mL] IV fluids: [See records] Urine output: [Not measured] Drains: [None] Complications: [None immediately apparent] Condition: [Stable to recovery] Operative indication and findings: [Patient is a 65-year-old male who in the past has been told he had deep vein reflux and was set to undergo iliac vein ultrasound with possible stenting, this is prior to the stenting recall and then he has been rescheduled multiple times prompting him to find other treatment. He's had chronic lower extremity edema and chronic intermittent bilateral lower extremity cellulitis. We did a repeat ultrasound in the office showing some degree of deep vein reflux in the common femoral veins bilaterally therefore he was set up and scheduled to undergo venogram with intravascular ultrasound and possible stenting if appropriate. Risks and benefits were discussed He seemingly understood and was willing to proceed as such] Procedure in detail: [The patient was taken to the operative suite and placed in supine position. Bilateral groins are prepped and draped in usual sterile fashion. A preprocedure timeout was performed, all parties are in agreement. The ultrasound was used and the right common femoral vein was identified. The skin overlying was anesthetized 1% lidocaine plain. Using a multipurpose needle of the vein was accessed and Seldinger technique was used to place an 8-[place] sheath. The same was then done with ultrasound guidance on the left femoral vein with placement of an 8-[place] sheath. A right and left iliofemoral venogram was performed, there was some visualized portions of dilation especially on the left. A Glidewire was placed followed by an IVUS catheter. A drawback was performed with the measurements as follows Inferior vena cava 371 mm right common iliac vein 201.9 mm Right external iliac vein 153.6 mm Area of compression 45.8 mm Right common femoral vein 242.9 mm Wires and catheters were then placed in the left and the same drawback and measurements were performed with the findings as follows Left common iliac vein 296.8 mm Area of compression 153.7 mm Left external iliac vein 142.5 mm Left common femoral vein 303 mm Given the approximate 70% compression in the external iliac vein on the right it was decided to place a stent. Measurements were made and a 16 x 100 Abre stent was placed and postdilated with a 16 x 40 balloon. The posterior the area was then remeasured with theIVUS and the resultant measurements post-stent for 163 mm. There was almost 50% compression of the left common iliac vein however given the overall size did not appear to have sufficient blockage due to the area of stenosis. The reference area also measured large at 19.4 mm in diameter. Given these findings no further intervention was performed on this side. At that point all catheters and wires were removed sheaths were removed and pressure was held until hemostasis was adequate. ] Plan - Discharge Summary Discharge Rx Participant: Yes New Discharge Prescriptions: No Action Furosemide [Lasix] 40 mg PO DAILY Levothyroxine Sodium [Synthroid] 75 mcg PO DAILY metFORMIN HCL [Glucophage XR] 2,000 mg PO DAILY Aspirin [Adult Low Dose Aspirin EC] 81 mg PO DAILY Multivitamins, Thera [Multivitamin (formulary)] 1 tab PO DAILY Fluticasone Nasal [place] [Flonase Nasal [place]] 1 spray EA NOSTRIL DAILY PRN PRN Reason: Allergy Symptoms Ammonium Lactate Lotion [Lac-Hydrin 12% Lotion] 1 applic TOPICAL BID Naproxen [Naprosyn] 500 mg PO Q12HR PRN PRN Reason: Pain Lovastatin [Mevacor] 40 mg PO DAILY Acetaminophen Tab [Tylenol] 650 mg PO Q6HR PRN tab PRN Reason: Fever And/ Or Pain Oxybutynin Chloride [Ditropan] 5 mg PO BID Dapagliflozin Propanediol [Farxiga] 10 mg PO DAILY Discharge Medication List Furosemide [Lasix] 40 mg PO DAILY 04/15/17 [History] Levothyroxine Sodium [Synthroid] 75 mcg PO DAILY 08/22/18 [History] Aspirin [Adult Low Dose Aspirin EC] 81 mg PO DAILY 04/27/20 [History] metFORMIN HCL [Glucophage XR] 2,000 mg PO DAILY 04/27/20 [History] Ammonium Lactate Lotion [Lac-Hydrin 12% Lotion] 1 applic TOPICAL BID 03/09/21 [History] Fluticasone Nasal [place] [Flonase Nasal [place]] 1 spray EA NOSTRIL DAILY PRN 03/09/21 [History] Multivitamins, Thera [Multivitamin (formulary)] 1 tab PO DAILY 03/09/21 [History] Acetaminophen Tab [Tylenol] 650 mg PO Q6HR PRN tab 03/13/21 [Rx] Dapagliflozin Propanediol [Farxiga] 10 mg PO DAILY 05/02/21 [History] Lovastatin [Mevacor] 40 mg PO DAILY 05/02/21 [History] Naproxen [Naprosyn] 500 mg PO Q12HR PRN 05/02/21 [History] Oxybutynin Chloride [Ditropan] 5 mg PO BID 05/02/21 [History] Follow up Appointment(s)/Referral(s): Graciela Hernandez DO [STAFF PHYSICIAN] - 1 Week Patient Instructions/Handouts: Peripheral Vascular Disease (ED), Peripheral Vascular Angioplasty (DC), Procedural Sedation (ED) Discharge Disposition: HOME SELF-CARE
[2021-05-04] MEDS ORDERED: CLOPIDOGREL 75 MG TAB PO STA (12:49)
--- NOTE | 2021-05-04 14:11 | IR ---
Fluoroscopy HISTORY: Stent placement 5.1 minutes fluoroscopy time supplied to the referring clinician. 516 intraoperative C-arm images do cument the procedure. See dictated report from vascular surgery.
[2021-05-04 14:59] VITALS: BP 146/70; PULSE 56
== END 2021-05-04 15:19 | disposition home or self-care (01) ==
LOC: CATHCVL 09:18
PROVIDERS: ATTEND Surgery
DX: L03.115 Cellulitis of right lower limb (principal); L03.116 Cellulitis of left lower limb; I87.2 Venous insufficiency (chronic) (peripheral); Z79.82 Long term (current) use of aspirin; Z79.84 Long term (current) use of oral hypoglycemic drugs; Z79.899 Other long term (current) drug therapy; Z20.822 Contact with and (suspected) exposure to COVID-19
CPT/HCPCS: 37238; 37252; 37253; 75820; 84132; 87635; C1894 ×2; C1769 ×3; C1753; C1725; C1876; J2250; J2001; J3010; Q9966

== ENCOUNTER 2021-05-25 06:21 | Day surgery (SDC) | payer MEDICARE, OTHER ==
[2021-05-23 15:25] VITALS: BMI 36.9
[~2021-05-25 06:21] MED LIST changes: +ALPRAZolam 0.5 MG TAB PO PRN; -ASPIRIN 325 MG TAB PO PRN; +HEPARIN SODIUM,PORCINE 10,000 UNIT in SODIUM CHLORIDE 0.9% 1,000 ML IRRIGATION PRN; +HEPARIN SODIUM,PORCINE 2,500 UNIT in SODIUM CHLORIDE 0.9% 250 ML IRRIGATION PRN; +NITROGLYCERIN SL TABS 0.4 MG TAB SUBLINGUAL PRN; -SODIUM CHLORIDE 0.9% 1,000 ML in EMPTY BAG 1 BAG IV ONE; +SODIUM CHLORIDE 0.9% 1,000 ML in EMPTY BAG 1 BAG IV SCH
[2021-05-25 06:56] LABS: Glucose,Whole Blood 219 mg/dL (75-99)
[2021-05-25] MEDS ORDERED: ASPIRIN 325 MG TAB PO ONE (07:00)
[2021-05-25 07:11] VITALS: TEMP 99.3
[2021-05-25 07:26] LABS: Basophils # (A) 0.1 k/uL (0-0.2); Basophils % (A) 1 %; Eosinophils # (A) 0.4 k/uL (0-0.7); Eosinophils % (A) 7 %; HCT 47.9 % (39.0-53.0); HGB 15.8 gm/dL (13.0-17.5); Lymphocytes # (A) 2.2 k/uL (1.0-4.8); Lymphocytes % (A) 37 %; MCV 90.7 fL (80.0-100.0); Mean Platelet Volume 7.2; Monocytes # (A) 0.5 k/uL (0-1.0); Monocytes % (A) 9 %; Neutrophils # (A) 2.5 k/uL (1.3-7.7); Neutrophils % (A) 42 %; Platelet Count 176 k/uL (150-450); RBC 5.28 m/uL (4.30-5.90); WBC 5.9 k/uL (3.8-10.6)
[2021-05-25] MEDS ORDERED: INSULIN ASPART (NovoLOG) 100 UNIT/ML VIAL SQ SCH (07:30)
[2021-05-25] MEDS ORDERED: fentaNYL (PF) 50 MCG/ML 2 ML AMP ONE (07:33)
[2021-05-25] MEDS ORDERED: IV FLUID CONTINUATION 1,000 ML IV ONE (07:40)
[2021-05-25 07:42] LABS: African American GFR (CKD) >90 (>60 ml/min/1.73 sqM); Anion Gap 8 mmol/L; Blood Urea Nitrogen 25 mg/dL (9-20); Calcium 10.1 mg/dL (8.4-10.2); Carbon Dioxide 23 mmol/L (22-30); Chloride 106 mmol/L (98-107); Glucose 242 mg/dL (74-99); Non-African American GFR(CKD) 82 (>60 ml/min/1.73 sqM); Sodium 137 mmol/L (137-145)
[2021-05-25 07:49] LABS: Potassium 4.7 mmol/L (3.5-5.1)
[2021-05-25] MEDS: BENZOCAINE SPRAY 1 CAN MUCOUS MEM ONE ×2 (07:59→08:10)
[2021-05-25] MEDS ORDERED: MIDAZOLAM 2 MG/2 ML VIAL IV ONE ×2 (08:10→09:33)
[2021-05-25] MEDS ORDERED: fentaNYL (PF) 50 MCG/ML 2 ML AMP IV ONE (08:10)
[2021-05-25 08:43] VITALS: RESP 16
[2021-05-25] MEDS ORDERED: LIDOCAINE 1% INJ 10MG/ML (20 ML MDV) SQ ONE (09:34)
[2021-05-25] MEDS ORDERED: VERAPAMIL SYRINGE (5 MG/10 ML) INTRAARTER ONE (09:36)
[2021-05-25] MEDS ORDERED: HEPARIN SODIUM 1,000 UN/ML (10ML VL) IV ONE (09:52)
[2021-05-25] MEDS ORDERED: IOPAMIDOL-370 125ML BTL INJ ONE (10:01)
[2021-05-25 10:08] LABS: O2 Sat Blood Gas 70.8 %
[2021-05-25 10:08] LABS: O2 Sat Blood Gas 69.3 %
[2021-05-25 10:09] LABS: O2 Sat Blood Gas 93.7 %
[2021-05-25] MEDS ORDERED: RX INFO: IV CONTRAST WAS GIVEN 1 EACH MISC MISCELLANE PRN (10:12)
[2021-05-25] MEDS ORDERED: SODIUM CHLORIDE 0.9% 1,000 ML IV SCH (10:15)
--- NOTE | 2021-05-25 11:01 | CC ---
CARDIAC CATHETERIZATION REPORT Mr. Springer is a 66-year-old male with a known history of hypertension, hyperlipidemia, diabetes mellitus, who has been complaining of progressive dyspnea and fatigue. His echocardiogram suggested progressive aortic stenosis. In view of that, recommendation was made regarding cardiac catheterization. The procedure as well as the risks and the complications were discussed with the patient who is in full understanding and agreement. 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 Using Xylocaine anesthesia and Seldinger technique, a 6-Georgian sheath was introduced in the right radial artery. The right basilic vein intravenous sheath was exchanged using guidewire technique to a 6-Georgian sheath. Subsequently right heart catheterization was performed. [place] catheter was advanced and multiple samples and cardiac output by thermodilution was calculated. Following that, selective right and left coronary angiography performed using 5-Georgian 3.5 bend right and left Judkin's catheter. Multiple views of the coronary artery including hemiaxial views were obtained. The right [place] catheter was used to cross the aortic valve and left ventricular end-diastolic pressure was calculated. Subsequently, a 5-[place]ian tight pigtail catheter was introduced in the ascending aorta and [place] view of the ascending aorta was performed. Following that, catheter and sheath were removed. Hemostasis was obtained with deployment of a TR band and compression of the right basilic vein. There was no immediate complication. Patient is returned to his room in stable condition. Of note, the patient received 5000 units of intravenous heparin as well as intra arterial verapamil. FINDINGS: HEMODYNAMICS: Right atrial saturation 69%, pulmonary artery saturation 71%, arterial saturation 94%. Cardiac output by Ramona 6.3 L/minute and by thermal 6.4 L/minute. Left ventricular systolic pressure of 140 with an ascending aorta of 119 and aortic valve area calculated at 1.3 to 1.4 cm2. The left ventricular end-diastolic pressure was 12-16 mmHg. Pulmonary capillary wedge pressure: A-wave of 14, V-wave 16 with a mean of 12 mmHg, pulmonary artery systolic pressure of 28 with a diastolic of 12 and a mean of 20 mmHg. Right ventricular systolic pressure of 30 with an end-diastolic pressure of 8, right atrium A-wave of 7, V-wave of 6 with a mean of 5 mmHg. FLUOROSCOPY: There was significant calcification involving the aortic valve. CORONARIES: As well as the mitral anulus: LEFT MAIN: This is a large-sized vessel bifurcating into left circumflex, left anterior descending artery. Left main coronary artery has no evidence of high-grade stenosis. LEFT ANTERIOR DESCENDING ARTERY: This is a large-sized vessel reaching towards the apex with a wraparound apex segment giving rise to 2 diagonal branches. Left anterior descending artery has mild intimal disease throughout its course of 20% to 30% without any evidence of high-grade stenosis. LEFT CIRCUMFLEX: This is a nondominant large-sized vessel giving rise to 2 obtuse marginal branches. The first obtuse marginal branch has a 20% to 30% plaque proximally. Prior to the takeoff of the second obtuse marginal branch, there is an eccentric 50 to 60% stenosis. The rest of the vessel has no high-grade stenosis. RIGHT CORONARY ARTERY: This is a large dominant vessel bifurcating into PDA and posterolateral segment and branches. The right coronary artery has mild intimal disease throughout its course of 10-20 percent without any evidence of high- grade stenosis. AORTOGRAM: Aortogram was performed in the [place] view and revealed a calcified aortic valve with a 3+ aortic regurgitation. CONCLUSION: 1. Calcified coronary arteries. 2. Moderate disease in the distal left circumflex and mild disease in the LAD and the right coronary artery. 3. Moderate aortic stenosis and 3+ aortic regurgitation. 4. No evidence of pulmonary hypertension. RECOMMENDATIONS: At this time, I will continue medical therapy. We will review his testing to further evaluate the aortic valve and his ascending aorta and depending on his progress, further recommendations will be made. Those findings and recommendations were discussed with the patient and his family, and they are in full understanding and agreement. Duration of sedation was 36 minutes. MMODL / IJN: [id number] / JI
[2021-05-25 14:08] VITALS: BP 147/81; PULSE 68
[2021-05-26] MEDS ORDERED: NON FORMULARY DRUG (Dapagliflozin Propanediol [Farxiga] 10 MG Tablet) PO SCH (09:00)
[2021-05-26] MEDS ORDERED: NON FORMULARY DRUG (Aspirin [Adult Low Dose Aspirin Ec] 81 MG Tablet.Dr) PO SCH (09:00)
[2021-05-26] MEDS ORDERED: CLOPIDOGREL 75 MG TAB PO SCH (09:00)
--- NOTE | 2021-05-26 11:24 | ECHOT ---
TRANSESOPHAGEAL ECHOCARDIOGRAM INDICATION: Evaluation of aortic valve. PROCEDURE DESCRIPTION: After explaining the procedure to the patient, its risks and complications, his blood pressure, heart rate, O2 saturation were monitored. His throat was sprayed with Cetacaine. He received 2 mg intravenous Versed, 50 mcg intravenous fentanyl. The probe was introduced into the esophagus without difficulty. Images were obtained. Following that, the probe was removed. There was no immediate complication. FINDINGS: Left atrial size is mildly dilated. Left ventricular size and systolic function are normal. The aortic valve is a tricuspid valve with severe calcification and reduced opening. It was not well visualized to be planimetered. There was evidence of dilatation and aneurysmal appearance of the coronary sinus. The mitral valve revealed mitral anulus calcification. The tricuspid valve is normal. Descending thoracic aorta appears to be normal. No pericardial effusion was noted. Contrast bubble study revealed no evidence of shunting across the interatrial septum. Doppler, pulse wave and color Doppler were obtained and revealed a peak gradient of 55 mmHg with a mean of 35 mmHg across the aortic valve. There was at least moderate aortic regurgitation, very eccentric, that appears to be originating from the aneurysmal appearance of the coronary sinus. Mild mitral and tricuspid regurgitation was noted. No shunting was noted by color Doppler study. CONCLUSION: 1. Normal left ventricular size and systolic function. 2. Dilated left atrium. 3. 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 4. Aneurysmal dilatation of the coronary sinus with eccentric aortic regurgitation. The regurgitation appears to be adjacent to the valve, raising the possibility of a perforation or an abscess. 5. Mitral anulus calcification. 6. Mild mitral and tricuspid regurgitation. 7. No shunting by color Doppler study. MMODL / IJN: [id number] /
== END 2021-05-25 14:41 | disposition home or self-care (01) ==
LOC: CATHCVL 06:21
PROVIDERS: ATTEND Internal Medicine Interventional Cardiology
DX: I51.7 Cardiomegaly (principal); Z20.822 Contact with and (suspected) exposure to COVID-19
CPT/HCPCS: 93453; 93312; 93320; 93325; 93567; 80048; 85018; 82810; 85025; 87635; C1894; C1751; C1769; J2250; J2001; J3010; J1644; Q9967